=== PATIENT | male | born 1955 | race Caucasian/White ===

== ENCOUNTER 2017-12-16 07:39 | Day surgery (SDC) | payer OTHER, SELFPAY ==
[2017-12-16] VITALS (7 sets, daily range): BP systolic 108–127; BP diastolic 65–93; PULSE 40–47; RESP 16–18; TEMP 36.1–36.2; O2SAT 92–99; BMI 37.3
--- NOTE | 2017-12-16 | COLBX_PTH ---
PATIENT: DAVID RAMIREZ LOC: EN U#:[id number] AGE/SX: 62/M ROOM: RE12/16/[address]: Dr. Hamilton Doran MD : [id number] BED: DIS: 12/16/2017 SPEC #: [id number] RECD: 12/16/17 14:04 STATUS: STEFANIA SUZANNE #: [id number] KAREN: 12/16/17 00:[address]: Hamilton Doran DEPT: SURGICAL PATHOLOGY RECD BY: Artie Doherty ENTERED: 12/16/17 14:05 SP TYPE: COLON BX OTHR DR: Dr. Anton Pond III, MD Tissues: Ascending colon Procedures: Surgery Specimen Level IV HEADER OPERATION: Colonoscopy PRE-OP DIAGNOSIS: Screening TISSUE SUBMITTED: Ascending colon polyp MICROSCOPIC DIAGNOSIS Ascending colon polyp, biopsy: Fragments of tubular adenoma. SJ:ally 12/17/17 MICROSCOPIC DESCRIPTION Slides are reviewed. GROSS DESCRIPTION Received in fixative is one container labeled with the patient's name and designated ascending colon polyp. The specimen consists of two pieces of calixto-pink polyp measuring 0.8 x 0.6 x 0.3 cm and 0.7 x 0.2 x 0.2 cm. The specimen is totally submitted in one cassette. / SJ:ally 12/16/17 TC:1 CPT: 65128
[2017-12-16 08:36] LABS: Bedside Glucose 116 mg/dL (70-110)
--- NOTE | 2017-12-16 08:53 | PCM.OPRPT ---
Problem List (1) Encounter for screening for malignant neoplasm of colon Status: Acute Report of Operation Date of Procedure: 12/16/17 Pre-Operative Diagnosis: Z12.11 screening colonoscopy Post-Operative Diagnosis: Same Surgery/Procedure Performed:: 25219 colonoscopy with snare polypectomy Type of Anesthesia:: MAC Anesthesiologist: Darion Terry Description of Procedure: Patient was brought into the endoscopy suite and placed in the left lateral decubitus position. Patient was given graded anesthesia. Scope was inserted into the rectum. The scope was directed through the sigmoid colon, descending colon, transverse colon, ascending colon, to the cecum. Operative findings: 1. Cecum: Normal appearance no mass lesions normal ileocecal valve. 2. Ascending colon: Normal appearance no mass lesions. Small polyp was identified and removed with snare cautery technique and brought back to the channel of the scope 3. Transverse colon: Normal appearance no mass lesions. 4. descending colon: Normal appearance no mass lesions. 5. Sigmoid colon: Normal appearance no mass lesions. Moderate amount of diverticular disease was identified. 6. Rectum: Normal appearance no mass lesions retroflexion did show some internal hemorrhoids no masses are identified. Digital rectal exam was performed showing a smooth prostate with no masses within the anus. Patient will need to have another colonoscopy in 3 years. - Admit VTE Documentation VTE Present on Admission: No VTE Mechan Device Prophylaxis: None VTE Pharm Prophylaxis ordered?: No Reason prophylaxis not ordered:: Treatment Not Indicated
--- NOTE | 2017-12-16 08:56 | PCM.HP.STD ---
Problem List (1) Encounter for screening for malignant neoplasm of colon Status: Acute History of Present Illness Date of Admission: 12/16/17 The patient is a 62 year old M who presents for screening colonoscopy. Past Medical History Past Medical History (Chronic Problems): Chronic Problems (Last Reviewed 09/27/17 @ 16:00 by Dez Sr) Essential (primary) hypertension (Chronic) Paroxysmal atrial fibrillation (Chronic) Allergies No Known Allergies Allergy (Verified 12/13/17 16:16) Home Medications: Ambulatory Orders Medication Instructions Recorded Allopurinol 300 mg PO DAILY 08/19/17 Fingolimod HCl [Gilenya] 0.5 mg PO DAILY 08/19/17 Gabapentin [Neurontin] 1 tab PO DAILY 08/19/17 Metoprolol Tartrate [Lopressor 100 mg PO BID #60 tab 08/23/17 (beta leandra)] Rivaroxaban [Xarelto] 20 mg PO DINNER #30 tab 08/23/17 Tamsulosin HCl [Flomax] 0.8 mg PO DAILY@1730 #60 cap 08/23/17 diltiazem CD 180 mg 180 mg PO QDAY cap 09/27/17 capsule,extended release 24 hr Metformin HCl 500 mg PO DAILY 12/13/17 Surgical History: - - Surgery on hand secondary to tendon laceration, arthroscopy of the knee Psychiatric History: No pertinent psych hx Smoking Status: Never smoker - *Family History Maternal History Items: Cancer - Lung cancer Paternal History Items: Cancer - Lung cancer, Heart Disease VTE Information - Inpt Only VTE Present on Admission: No VTE Mechan Device Prophylaxis: None VTE Pharm Prophylaxis ordered?: No Reason prophylaxis not ordered:: Treatment Not Indicated Patient Problems: Active and Suspected Problems (Last Reviewed 09/27/17 @ 16:00 by Dez Sr) Encounter for screening for malignant neoplasm of colon (Acute) - Physical Exam Neck: Supple, No JVD Lungs: Clear to auscultation Cardiovascular: Regular rate, Regular Rhythm, No murmurs Abdomen: Bowel Sounds Present, Soft, Non Tender, Non-Distended Vital Signs Temp Pulse Resp BP Pulse Ox 97.0 F L 47 L 18 123/84 H 99 12/16/17 07:58 12/16/17 07:58 12/16/17 07:58 12/16/17 07:58 12/16/17 07:58 Oxygen Delivery Method Room Air Weight: 298 lb 15.149 oz Body Mass Index (BMI) 37.3 POC Glucose 12/16/17 08:02 POC Glucose 116 H Assessment/Plan Active and Suspected Problems (Last Reviewed 09/27/17 @ 16:00 by Dez Sr) Encounter for screening for malignant neoplasm of colon (Acute) I plan is to perform a colonoscopy on the patient.
== END 2017-12-16 09:39 | disposition home or self-care (01) ==
LOC: EN 07:42 → AC 07:43
PROVIDERS: Family Provider Family Medicine; PCP Family Medicine; Visit Provider Surgery
PROC: 0DJD8ZZ Inspection of Lower Intestinal Tract, Via Natural or Artificial Opening Endoscopic (ICD-10-PCS; CPT 45378; principal; 2017-12-16 08:55)
DX: Z12.11 Encounter for screening for malignant neoplasm of colon (principal); D12.2 Benign neoplasm of ascending colon; K57.30 Diverticulosis of large intestine without perforation or abscess without bleeding; K64.8 Other hemorrhoids; I10 Essential (primary) hypertension; I48.0 Paroxysmal atrial fibrillation; G35 Multiple sclerosis; E11.9 Type 2 diabetes mellitus without complications; Z86.19 Personal history of other infectious and parasitic diseases; Z79.84 Long term (current) use of oral hypoglycemic drugs; Z79.899 Other long term (current) drug therapy
CPT/HCPCS: 45385; 82962; 88305; J7120

== ENCOUNTER → 2018-10-10 13:11 | Outpatient (CLI) | payer OTHER, SELFPAY ==
[2018-10-10 11:10] VITALS: BMI 40.4
== END ==
PROVIDERS: Family Provider Family Medicine; PCP Family Medicine; Referring Provider Internal Medicine Cardiovascular Disease; Visit Provider Internal Medicine Cardiovascular Disease
DX: I48.0 Paroxysmal atrial fibrillation (principal)
CPT/HCPCS: 93225; 93226

== ENCOUNTER → 2019-02-02 | Outpatient (CLI) | payer OTHER, SELFPAY ==
[2018-10-10 11:10] VITALS: BMI 40.4
--- NOTE | 2019-02-02 08:02 | ECHOCS_ITS ---
Reason For Study: A. fib/flutter Procedure This was a 2D Doppler, Color Flow transthoracic echocardiogram. Exam performed in department. Left Ventricle Normal LV size. Moderate concentric left ventricular hypertrophy. Left ventricular systolic function is normal. The estimated ejection fraction is 60 %. Stage 1 diastolic dysfunction. No regional wall motion abnormalities noted. Right Ventricle Normal RV size. Normal systolic function. Atria The left atrium is moderately enlarged. Normal right atrium. Mitral Valve There is mild to moderate mitral annular calcification. Mild (1+) eccentric mitral valve insufficiency. Tricuspid Valve Normal tricuspid valve. Mild (1+) tricuspid valve insufficiency. Pulmonary artery systolic pressure is 40 mmHg. Aortic Valve Trisinus/trileaflet aortic valve. Mild focal aortic valve calcification. Mild (1+) aortic valve insufficiency. Pulmonic Valve Normal pulmonic valve. Great Vessels Normal aortic root. The pulmonary artery is normal size. Normal inferior vena cava. Pericardium/Pleural No pericardial effusion. Medication 22 gauge I.V. with prn adaptor inserted into right arm. Diluted definity 6ml given slow IV push to enhance endocardial definition. MMode/2D Measurements & Calculations LVIDd: 5.1 cm IVSd: 1.6 cm Ao root diam: 3.9 cm LVIDs: 3.1 cm LVPWd: 1.5 cm RVDd: 4.0 cm FS: 40.3 % LAV(MOD-bp): 132.6 ml LA A4 area: 33.7 cm2 LA dimension(2D): 4.4 cm LAV(MOD-bp) Indexed: 50.0 ml/m2 LAV(MOD-sp2): 127.9 ml LAV(MOD-sp4): 136.9 ml RA A4 area: 20.2 cm2 Doppler Measurements & Calculations MV E max matteo: 106.0 cm/sec Lat Peak E' Matteo: 8.9 cm/sec Med Peak E' Matteo: 6.1 cm/sec MV A max matteo: 45.9 cm/sec E/E' lat: 11.9 E/E' med: 17.3 MV E/A: 2.3 Ao V2 max: 196.0 cm/sec LV V1 max: 107.1 cm/sec PA V2 max: 114.4 cm/sec Ao max P.4 mmHg LV V1 max P.6 mmHg Ao V2 mean: 130.2 cm/sec LV V1 mean P.3 mmHg Ao mean P.6 mmHg LV V1 mean: 70.9 cm/sec Ao V2 VTI: 41.8 cm LV V1 VTI: 24.6 cm TR max matteo: 300.7 cm/sec TR max P.2 mmHg Interpretation Summary Normal LV size. Moderate concentric left ventricular hypertrophy. Left ventricular systolic function is normal. The estimated ejection fraction is 60 %. Stage 1 diastolic dysfunction. Mild (1+) eccentric mitral valve insufficiency. Mild (1+) tricuspid valve insufficiency. Mild focal aortic valve calcification. Mild (1+) aortic valve insufficiency. Ordering Physician: Alfonzo Monte Referring Physician: RASHEED Pond M.D. Performed By: Nkechi Agustin RDCS
== END | disposition home or self-care (01) ==
PROVIDERS: Family Provider Family Medicine; PCP Family Medicine; Referring Provider Internal Medicine Cardiovascular Disease; Visit Provider Internal Medicine Cardiovascular Disease
DX: I48.0 Paroxysmal atrial fibrillation (principal)
CPT/HCPCS: 93306; Q9957; A4216; C8929

== ENCOUNTER 2021-05-04 19:17 | Inpatient (IN) | payer OTHER, SELFPAY ==
[2020-12-02 13:37] VITALS: BMI 39.0
[2021-05-04] VITALS (7 sets, daily range): BP systolic 100–119; BP diastolic 60–77; PULSE 98–123; RESP 16–22; TEMP 36.6–37.8; O2SAT 95–99; BMI 38.3; BMI 38.7
--- NOTE | 2021-05-04 20:05 | EKG12_ITS ---
Test Reason : DYSRHYTHMIA Blood Pressure : / mmHG Vent. Rate : 125 BPM Atrial Rate : 101 BPM P-R Int : 000 ms QRS Dur : 156 ms QT Int : 322 ms P-R-T Axes : 000 051 -47 degrees QTc Int : 464 ms Atrial fibrillation with rapid ventricular response Right bundle branch block T wave abnormality, consider lateral ischemia Abnormal ECG Confirmed by DREW HILL, JORDEN ([id number]), manager editorial NICK VAUGHN ([id number]) on 05/08/2021 9:45:02 AM Referred By: CHAR Confirmed By:YOUSUF RUSSELL MD
--- NOTE | 2021-05-04 20:06 | EX.ED.DYSGE1 ---
HPI History of Present Illness Chief Complaint: Palpitations Detail of Chief Complaint: Decreased urine output Informant: patient Narrative Narrative: Patient presents to the emergency department with complaint of decreased urine output that started 2 days ago. Patient was seen by Dr. Blake today and referred to the ER as he was in [facility]. Patient has history of sepsis. Patient has history of MS and hypertension. He is not currently anticoagulated. He denies fevers or chills or sweats at home. Patient has had his Covid vaccine. He denies any significant cough. He does not feel his heart racing or any palpitations currently. [facility] Medical History (Updated 05/04/21 @ 21:[address] Beau Lynch, DO) Bilateral enlargement of atria BPH (benign prostatic hyperplasia) Essential (primary) hypertension Multiple sclerosis Paroxysmal atrial fibrillation Right bundle branch block Sepsis Type 2 diabetes mellitus Home Medications fingolimod 0.5 mg PO DAILY 08/19/17 [History Last Taken Unknown] tamsulosin 0.8 mg PO DAILY@1730 #60 cap 08/23/17 [Rx Last Taken Unknown] losartan 100 mg tablet 100 mg PO DAILY #90 tab 06/19/19 [Rx Last Taken Unknown] metoprolol tartrate 100 mg tablet 100 mg PO DAILY #90 tab 06/19/19 [Rx Last Taken Unknown] allopurinol 300 mg tablet 300 mg PO DAILY PRN 10/15/19 [History Last Taken Unknown] aspirin 81 mg tablet,delayed release 81 mg PO DAILY #1 tab 11/04/20 [Rx Last Taken Unknown] Allergy/AdvReac Type Severity Reaction Status Date / Time No Known Allergies Allergy Verified 05/04/21 19:19 Family History Mother Cancer Father Heart disease Cancer Surgical History H/O arthroscopy of knee H/O hand surgery Social History (Updated 12/02/20 @ 15:41 by Naveen BONDS, PA) Smoking Status: Never smoker alcohol intake: former substance use type: does not use caffeine: Yes Type: coffee eating out: 1-3 times/week what type of physical activity do you participate in: none seatbelt use: always do you feel safe at home: Yes ROS ROS ED Constitutional Constitutional ED: Reports systems reviewed and no addt'l complaints, except as documented; Denies body ache(s), change in weight or chills Eyes Eyes: Denies acute decrease in peripheral vision, change in vision, double vision or loss of vision ENT ENT ED: Reports none; Denies ear pain, lip swelling, loss taste/smell, neck pain, otalgia or sore throat Cardiovascular Cardiovascular: Reports none; Denies abdominal pain, chest pain with activity, leg edema, lightheadedness, palpitations, rapid heart rate or syncope Respiratory/Chest Respiratory/Chest: Reports none; Denies change in mental status, dry cough, dyspnea, hemoptysis, shortness of breath at rest or shortness of breath with exertion Gastrointestinal Gastrointestinal: Reports none; Denies abdominal pain, change in stool character, diarrhea, hematemesis, hematochezia, melena, rectal bleeding or vomiting Genitourinary Genitourinary ED: Reports none and other Details: Decreased urine output ; Denies abdominal discomfort, anuria, dysuria, genital pain or polyuria Musculoskeletal Musculoskeletal: Reports none; Denies arthralgias, back pain, difficulty walking, extremity pain, muscle weakness or myalgias Integumentary Reports none; Denies abscess or rash Neurologic Neurologic: Reports none; Denies abnormal gait, confusion, focal weakness, frequent falls, headache(s), loss of vision, numbness, paresthesias, radicular pain, vertigo or weakness Psychiatric Psychiatric: Reports systems reviewed and no addt'l complaints, except as documented and none; Denies behavioral changes, confusion, difficulty concentrating, hallucinations, suicidal ideation, tactile hallucinations or visual hallucinations Endocrine Endocrinology: Denies none, cold intolerance, excessive sweating, fatigue or heat intolerance Hematologic/Lymphatic Hematologic/Lymphatic: Reports none; Denies anemia, easy bleeding or easy bruising Allergic/Immunologic Allergic/Immunologic ED: Denies as per HPI, none, lip swelling, mouth swelling, throat swelling, tongue swelling or hives EXAM Physical Exam Const Vital Signs: 05/04/21 19:19 05/04/21 20:01 05/04/21 20:24 Temperature 97.8 F 100.0 F H Temperature Source Temporal Oral Pulse Rate 100 120 H Respiratory Rate 16 20 H Respiratory Pattern Normal Blood Pressure 119/73 112/62 Blood Pressure Mean 88 78 Pulse Ox 99 99 Oxygen Delivery Method Room Air Room Air Positive well nourished and well developed General Appearance ED: well developed and NAD HEENT Reports TM's clear and moist mucous membranes normocephalic and atraumatic; Negative for trauma or tenderness Tympanic Membrane ED: Yes TM's clear Eyes PERRL and EOMs intact bilaterally General Eye ED: Negative for pale conjunctiva or scleral icterus Neck no lymphadenopathy, supple and no JVD General: Negative for tenderness Chest Wall inspection of chest normal and palpation of chest normal Chest: Negative for tenderness Resp normal respiratory effort and clear to auscultation bilaterally Effort and Inspection: Negative for respiratory distress or pain with movement Auscultation: Negative for rhonchi, wheezes or diminished lung sounds Cardio S1 normal heart sound, S2 normal heart sound and no murmurs Rate: tachycardic Rhythm: abnormal rhythm Peripheral Pulses: pulses 2+ throughout GI normal to inspection, nondistended, normoactive bowel sounds, soft to palpation, non-tender, non-distended and no masses Back/Spine no CVA tenderness and no thoracic nor lumbar tenderness Extremity normal to inspection General Extremety ED: Negative for edema General Extremity: Negative for edema Neuro oriented x3, CN's II-XII intact bilaterally, no sensory deficits noted and gait normal Sensorium / Orientation: awake, alert, oriented to person, oriented to place and oriented to time Motor Exam: strength 5/5 throughout and strength abnormal Psych mental status grossly normal Skin no rashes or lesions noted and no wounds MDM MDM MDM Narrative Medical decision making narrative: Patient was given IV fluids and started on Rocephin 1 g IV. I did not treat the patient's heart rate given his blood pressure was marginal initially I felt he initially needed to have fluids for suspected sepsis. Case discussed with hospitalist will evaluate patient for admission. Lab Data Attestation: I reviewed the patient's lab results. Labs: Laboratory Results - last 24 hr 05/04/21 05/04/21 05/04/21 20:00 20:00 20:00 WBC 9.9 RBC 3.87 L Hgb 12.5 L Hct 37.7 L MCV 97.4 H MCH 32.3 H MCHC 33.2 RDW Std Deviation 47.3 H RDW Coeff of Carmelo 13.2 Plt Count 157 MPV 12.4 H Immature Gran % (Auto) 0.400 Neut % (Auto) 88.5 H Lymph % (Auto) 4.8 L [place] % (Auto) 6.1 Eos % (Auto) 0.1 Baso % (Auto) 0.1 Absolute Neuts (auto) 8.8 H Absolute Lymphs (auto) 0.48 L Nucleated RBC % 0 Differential Comment SEE COMMENT Platelet Estimate ADEQUATE RBC Morphology N CHROM Anisocytosis RARE Macrocytosis RARE Sodium 138 Potassium 3.6 Chloride 102 Carbon Dioxide 26.0 Anion Gap 10 BUN 31 H Creatinine 1.25 Estim Creat Clear Calc 70.33 Est GFR (MDRD) Af Amer 75 Est GFR (MDRD) Non-Af 62 BUN/Creatinine Ratio 24.8 H Glucose 124 H Lactic Acid 0.8 Calcium 8.6 Total Bilirubin 0.80 AST 20 ALT 24 Alkaline Phosphatase 72 Troponin I High Sens 13.8 Total Protein 7.3 Albumin 3.2 Globulin 4.1 Albumin/Globulin Ratio 0.8 L Urine Color Urine Clarity Urine pH Ur Specific [place] Urine Protein Urine Glucose (UA) Urine Ketones Urine Occult Blood Urine Nitrite Urine Bilirubin Urine Urobilinogen Ur Leukocyte Esterase Urine RBC Urine WBC Ur Squamous Epith Cells Amorphous Sediment Urine Bacteria Urine Mucus 05/04/21 20:40 WBC RBC Hgb Hct MCV MCH MCHC RDW Std Deviation RDW Coeff of [place] Plt Count MPV Immature Gran % (Auto) Neut % (Auto) Lymph % (Auto) [place] % (Auto) Eos % (Auto) Baso % (Auto) Absolute Neuts (auto) Absolute Lymphs (auto) Nucleated RBC % Differential Comment Platelet Estimate RBC Morphology Anisocytosis Macrocytosis Sodium Potassium Chloride Carbon Dioxide Anion Gap BUN Creatinine Estim Creat Clear Calc Est GFR (MDRD) Af Amer Est GFR (MDRD) Non-Af BUN/Creatinine Ratio Glucose Lactic Acid Calcium Total Bilirubin AST ALT Alkaline Phosphatase Troponin I High Sens Total Protein Albumin Globulin Albumin/Globulin Ratio Urine Color Yellow Urine Clarity Cloudy Urine pH 8.0 Ur Specific [place] 1.010 Urine Protein 30 H Urine Glucose (UA) Normal Urine Ketones Negative Urine Occult Blood 150 H Urine Nitrite Positive H Urine Bilirubin Negative Urine Urobilinogen Normal Ur Leukocyte Esterase 500 H Urine RBC 10-25 SEEN Urine WBC 25-50 SEEN Ur Squamous Epith Cells 0-5 SEEN Amorphous Sediment 1+ PHOS Urine Bacteria 2+ Urine Mucus 0 SEEN Radiography Chest X-Ray - ED: 1 View Diagnostic Testing: Radiology Impression Chest X-Ray 05/04/21 20:44 IMPRESSION: No radiographic evidence of acute cardiopulmonary disease. at 2111 Reported and signed by: Juan Carlos Culver MD Electronically Signed: Juan Carlos Culver MD at 21:10 EDT Tel , Service support , 1 view chest x-ray obtained interpreted by myself as no acute disease process. EKG Initial EKG: Attestation: I personally reviewed and interpreted this EKG as follows: Comments: Atrial fibrillation with a ventricular rate of 125 bpm with right bundle branch block and nonspecific ST changes. Discharge Plan Dx/Rx/DC Orders Clinical Impression: Atrial fibrillation with rapid ventricular response, Acute UTI, Sepsis Disposition Disposition: Acute Care [facility]
[2021-05-04 20:24] LABS: Absolute Lymphocyte Count 0.48 X10^3/uL (0.83-4.51); Absolute Neutrophil Count 8.8 X10^3/uL (2.0-7.7); Basophil# 0.01 X10^3/uL; Basophil% 0.1 % (0-1); Eosinophil# 0.01 X10^3/uL; Eosinophils% 0.1 % (0-5); Hematocrit 37.7 % (40-54); Hemoglobin 12.5 g/dL (13.0-16.5); Lymphocyte # 0.48 X10^3/ul (0.83-4.51); Lymphocyte % 4.8 % (19-41); Mean Corp Hgb Conc 33.2 g/dL (32-36); Mean Corpuscular Hgb 32.3 pg (27.0-32.0); Mean Corpuscular Volume 97.4 fL (80-94); Mean Platelet Vol. 12.4 fl (6.2-12.0); Monocyte# 0.61 X10^3/uL; Monocyte% 6.1 % (0-10); NRBC Flagged by Analyzer 0 % (0-5); Neutrophil # 8.79 X10^3/uL (2.7-7.7); Neutrophil % 88.5 % (47-70); POSITIVE DIFFERENTIAL YES; Platelet Count 157 K/mm3 (150-450); RBC Distribution Width CV 13.2 % (11.6-14.6); RBC Distribution Width SD 47.3 fl (35.1-43.9); Red Blood Count 3.87 M/mm3 (4.6-6.2); White Blood Count 9.9 K/mm3 (4.4-11.0)
[2021-05-04] MEDS: 0.9% Normal Saline 1,000 ML 1000 ML IV (20:31)
[2021-05-04 20:32] LABS: Differential Indicated SCAN CRITERIA MET
[2021-05-04 20:37] LABS: Lactic Acid 0.8 mmol/L (0.4-1.9)
[2021-05-04 20:39] LABS: ALB/GLOB Ratio 0.8 RATIO (0.9-2.4); AST(SGOT) 20 U/L (15-37); Alanine Aminotransfer ALT/SGPT 24 U/L (16-61); Albumin, Serum 3.2 g/dL (3.2-5.0); Alkaline Phosphatase 72 U/L (45-117); Anion Gap 10 (5-15); BUN 31 mg/dL (7-18); BUN/Creat Ratio 24.8 RATIO (10-20); Calcium,Total 8.6 mg/dL (8.5-10.1); Chloride 102 mmol/L (98-107); Creatinine, Serum 1.25 mg/dL (0.70-1.30); EST Glomerular Filtration Rate 62 mL/min (>60); Est Glom Filt Rate - Afr Amer 75 mL/min (>60); Estimated Creatinine Clearance 70.33 ml/min; Globulin 4.1 g/dL (2.2-4.2); Glucose 124 mg/dL (74-106); Potassium 3.6 mmol/L (3.5-5.1); Protein, Total 7.3 g/dL (6.4-8.2); Sodium Level 138 mmol/L (136-145); Troponin-I HS 13.8 pg/mL (3.0-78.5)
--- NOTE | 2021-05-04 20:44 | RAD_ITS ---
HISTORY: fever EXAMINATION/TECHNIQUE: XR Chest 1 View: Portable upright AP chest x-ray COMPARISON: 08/19/17 FINDINGS: LINES/DEVICES: None. LUNGS: No consolidation, edema or effusion. No pneumothorax. MEDIASTINUM AND CARDIOVASCULAR STRUCTURES: Cardiac silhouette not enlarged. Central airways and mediastinal contour are unremarkable. BONES AND SOFT TISSUES: No acute bony abnormalities. RAD/Chest 1 View (Portable) IMPRESSION: No radiographic evidence of acute cardiopulmonary disease. at 2111 Reported and signed by: Juan Carlos Culver MD Electronically Signed: Juan Carlos Culver MD at 21:10 EDT Tel , Service support ,
[2021-05-04 20:46] LABS: Mucous, Urine 0 SEEN /hpf (<or=2+)
[2021-05-04 20:56] LABS: Color, Urine Yellow (Yellow); Glucose, Dipstick Normal (Normal); Ketone-Dipstick Negative (Negative); Leukocyte Esterase-Dipstick 500 /ul (Negative); Nitrite-Dipstick Positive (Negative); Occult Blood-Urine 150 /ul (Negative); Protein-Dipstick 30 mg/dl (Negative); Urine Bilirubin Dipstick Negative (Negative); Urine Clarity Cloudy (Clear); Urine Urobilinogen Normal (Normal)
[2021-05-04 21:21] LABS: Anisocytosis RARE; Macrocytosis RARE; Platelet Estimate ADEQUATE (ADEQ); Red Cell Morphology N CHROM NORMAL (NORM C&C)
[2021-05-04 21:24] LABS: Amorphous Sediment 1+ PHOS; Bacteria 2+ /hpf (None Seen); Red Blood Cells-Urine 10-25 SEEN /hpf (0-5); Squamous Epithelial Cells - UA 0-5 SEEN /hpf (0-5); White Blood Cells 25-50 SEEN /hpf (0-5)
--- NOTE | 2021-05-04 21:36 | PCM.HP.STD ---
HPI - General General Date of Admission: 05/04/21 HPI Narrative DAVID RAMIREZ, is a 65 M with a PMH as outlined who presents via the ED on 05/04/2021 from his PCP's office with a complaint of decreased urine output. In his PCP's office, he was found to be in afib with RVR.He has a history of paroxysmal afib. He is not anticoagulated. He did admit to dysuria earlier in the week, so he had started drinking more fluids. He denied any fever, chills, chest pain, palpitations, abdominal pain, dizziness, nausea or vomiting. Review of systems was otherwise negative. Vitals in the ED were temp of 11F, RR of 20, DE of 120 and BP of 112/62. CBC showed wbc of 9.9 with Hb of 12.5 and platelets of 157. Chemistry showed sodium of 138, K of 3.6 and Cr of 1.25. Urinalysis showed 2+ bacteria and positive nitrites. He is being admitted to be managed for Afib with RVR and sepsis due to UTI. Lactic acid was WNL. [facility] Medical History (Updated 05/05/21 @ 16:[address] Carissa Barnhart, DO) Bilateral enlargement of atria BPH (benign prostatic hyperplasia) Essential (primary) hypertension Multiple sclerosis Paroxysmal atrial fibrillation Right bundle branch block Sepsis Type 2 diabetes mellitus Home Medications allopurinol 300 mg tablet 300 mg PO DAILY PRN 10/15/19 [History Last Taken Unknown] aspirin 81 mg PO DAILY 05/04/21 [History Last Taken Unknown] fingolimod [Gilenya] 0.5 mg PO DAILY 05/04/21 [History Last Taken Unknown] losartan 100 mg PO DAILY 05/04/21 [History Last Taken Unknown] metoprolol tartrate 100 mg PO DAILY 05/04/21 [History Last Taken Unknown] tamsulosin 0.4 mg PO DAILY@1730 05/04/21 [History Last Taken Unknown] apixaban [Eliquis] 5 mg PO BID #60 tab 05/05/21 [Rx Last Taken Unknown] Allergy/AdvReac Type Severity Reaction Status Date / Time No Known Allergies Allergy Verified 05/04/21 19:19 Family History Mother Cancer Father Heart disease Cancer Surgical History H/O arthroscopy of knee H/O hand surgery Social History (Updated 05/05/21 @ 00:07 by Eduarda Vora) household members: spouse housing: house number of children: 2 current occupational status: employed 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 history of recent travel: No Smoking Status: Never smoker alcohol intake: former substance use type: does not use caffeine: No eating out: 1-3 times/week what type of physical activity do you participate in: none 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: [employer] seatbelt use: always do you feel safe at home: Yes ROS Review of Systems ROS Unobtainable: Denies due to encephalopathy Constitutional Constitutional: Reports chills, fever(s), malaise and weakness; Denies anorexia, change in weight or fatigue Eyes Eyes: Denies blurry vision ENT HEENT: Denies dysphagia, headache(s) or nasal congestion Cardiovascular Cardiovascular: Reports palpitations; Denies chest pain, dyspnea on exertion, edema, lightheadedness, orthopnea or syncope Respiratory/Chest Respiratory/Chest: Denies cough, dyspnea, productive cough, shortness of breath at rest, shortness of breath with exertion or wheezing Gastrointestinal Gastrointestinal: Denies abdominal pain, diarrhea, nausea or vomiting Genitourinary Genitourinary: Reports burning urination, dysuria and urinary frequency; Denies urinary hesitancy or urinary incontinence Musculoskeletal Musculoskeletal: Denies arthralgias, joint stiffness or joint swelling Neurologic Neurologic: Denies abnormal gait, confusion, dizziness, focal weakness or seizures Psychiatric Psychiatric: Denies anxiety or depression Hematologic/Lymphatic Hematologic/Lymphatic: Denies anemia Vital Signs Vital Signs Vital Signs: 05/04/21 19:19 05/04/21 20:01 05/04/21 20:24 Temperature 97.8 F 100.0 F H Temperature Source Temporal Oral Pulse Rate 100 120 H Respiratory Rate 16 20 H Respiratory Pattern Normal Blood Pressure 119/73 112/62 Blood Pressure Mean 88 78 Pulse Ox 99 99 Oxygen Delivery Method Room Air Room Air Weight Weight: 298 lb 11.622 oz Body Mass Index (BMI) 38.3 Physical Exam Const alert, oriented x3 and no apparent distress General Appearance: cooperative HEENT normocephalic, head/scalp atraumatic, hearing grossly normal bilaterally and moist oral mucous membranes Eyes PERRL, EOMs intact bilaterally and conjunctivae normal Neck no lymphadenopathy Resp normal respiratory effort, no retractions, no use of accessory muscles and clear to auscultation bilaterally Cardio Cardio Narrative: irregularly irregular rate; afib, rate controlled. GI normal to inspection, nondistended, normoactive bowel sounds, soft to palpation, non-tender and non-distended Extremity normal to inspection, full ROM and no clubbing, cyanosis or edema Peripheral Pulses: Yes pulses 2+ throughout Skin no rashes or lesions noted Neuro oriented x3 Sensorium / Orientation: awake and alert Psych affect normal Results Lab / Micro Data Result Diagrams: 05/05/21 06:18 05/05/21 06:18 Labs: Laboratory Results - last 24 hr 05/04/21 20:00: WBC 9.9, RBC 3.87 L, Hgb 12.5 L, Hct 37.7 L, MCV 97.4 H, MCH 32.3 H, MCHC 33.2, RDW Std Deviation 47.3 H, RDW Coeff of Carmelo 13.2, Plt Count 157, MPV 12.4 H, Immature Gran % (Auto) 0.400, Neut % (Auto) 88.5 H, Lymph % (Auto) 4.8 L, Foard % (Auto) 6.1, Eos % (Auto) 0.1, Baso % (Auto) 0.1, Absolute Neuts (auto) 8.8 H, Absolute Lymphs (auto) 0.48 L, Nucleated RBC % 0, Differential Comment SEE COMMENT, Platelet Estimate ADEQUATE, RBC Morphology N CHROM, Anisocytosis RARE, Macrocytosis RARE 05/04/21 20:00: Sodium 138, Potassium 3.6, Chloride 102, Carbon Dioxide 26.0, Anion Gap 10, BUN 31 H, Creatinine 1.25, Estim Creat Clear Calc 70.33, Est GFR (MDRD) Af Amer 75, Est GFR (MDRD) Non-Af 62, BUN/Creatinine Ratio 24.8 H, Glucose 124 H, Calcium 8.6, Total Bilirubin 0.80, AST 20, ALT 24, Alkaline Phosphatase 72, Troponin I High Sens 13.8, Total Protein 7.3, Albumin 3.2, Globulin 4.1, Albumin/Globulin Ratio 0.8 L 05/04/21 20:00: Lactic Acid 0.8 05/04/21 20:40: Urine Color Yellow, Urine Clarity Cloudy, Urine pH 8.0, Ur Specific [place] 1.010, Urine Protein 30 H, Urine Glucose (UA) Normal, Urine Ketones Negative, Urine Occult Blood 150 H, Urine Nitrite Positive H, Urine Bilirubin Negative, Urine Urobilinogen Normal, Ur Leukocyte Esterase 500 H, Urine RBC 10-25 SEEN, Urine WBC 25-50 SEEN, Ur Squamous Epith Cells 0-5 SEEN, Amorphous Sediment 1+ PHOS, Urine Bacteria 2+, Urine Mucus 0 SEEN Radiology Impression Chest X-Ray 05/04/21 20:44 IMPRESSION: No radiographic evidence of acute cardiopulmonary disease. at 2111 Reported and signed by: Juan Carlos Culver MD Electronically Signed: Juan Carlos Culver MD at 21:10 EDT Tel , Service support , Assessment & Plan Assessment/Plan (1) Atrial fibrillation with rapid ventricular response: (2) Acute UTI: (3) Sepsis: PLAN: #Sepsis due to UTI SIRS criteria is 2/4 (tachypne and tachycardia) with source of infection being UTI admit to PCU hydrate with IVF start on IV ceftriaxone blood and urine cultures obtained #Afib wtih RVR HR is ~ 120 at time of review on metoprolol. Will resume. If HR trends upwards, will start on cardizem drip as appropriate #History of MS on fingolimod. #Hypertension: on losartana nd metoprolol #BPH: on flomax History of gout: on allopurinol DVT prophylaxis; lovenox Code status: full code Patient counseled extensively about different types of CODE STATUS including full code, DNR CCA and DNR CCA. Patient elects to be full code. Total maye-im-sbgn time 17 minutes. Charges/Coding Visit Charges Inpatient E&M: 28594 Init Hosp L3 Procedures Hospitalists Procedures: 71122 Advncd Care Plan 30 Min
[2021-05-04] MEDS: 0.9% Normal Saline 1,000 ML 999 ML IV ×2 (22:04)
[2021-05-04] MEDS: Ceftriaxone 1 GM/50 ML BAG IV (22:05)
[2021-05-04] MEDS: 0.9% Normal Saline 1,000 ML 150 ML IV (23:50)
[2021-05-05] VITALS (13 sets, daily range): BP systolic 119–142; BP diastolic 76–91; PULSE 90–148; RESP 16–18; TEMP 36.9–37.4; O2SAT 95–100
[2021-05-05 01:40] LABS: Troponin-I HS 10.5 pg/mL (3.0-78.5)
[2021-05-05 03:27] LABS: Troponin-I HS 13.9 pg/mL (3.0-78.5)
[2021-05-05] MEDS: Metoprolol Tartrate 25 MG Tablet 12.5 MG PO (06:18)
[2021-05-05] MEDS: 0.9% Normal Saline 1,000 ML 150 ML IV (06:20)
[2021-05-05 06:51] LABS: Absolute Lymphocyte Count 0.18 X10^3/uL (0.83-4.51); Absolute Neutrophil Count 5.4 X10^3/uL (2.0-7.7); Basophil# 0.01 X10^3/uL; Basophil% 0.2 % (0-1); Eosinophil# 0.06 X10^3/uL; Hemoglobin 11.8 g/dL (13.0-16.5); Lymphocyte # 0.18 X10^3/ul (0.83-4.51); Lymphocyte % 2.9 % (19-41); Mean Corp Hgb Conc 32.8 g/dL (32-36); Mean Corpuscular Hgb 32.7 pg (27.0-32.0); Mean Corpuscular Volume 99.7 fL (80-94); Mean Platelet Vol. 12.3 fl (6.2-12.0); Monocyte# 0.57 X10^3/uL; Monocyte% 9.2 % (0-10); NRBC Flagged by Analyzer 0 % (0-5); Neutrophil # 5.35 X10^3/uL (2.7-7.7); Neutrophil % 86.2 % (47-70); POSITIVE DIFFERENTIAL YES; Platelet Count 136 K/mm3 (150-450); RBC Distribution Width CV 13.2 % (11.6-14.6); RBC Distribution Width SD 48.8 fl (35.1-43.9); Red Blood Count 3.61 M/mm3 (4.6-6.2); White Blood Count 6.2 K/mm3 (4.4-11.0)
[2021-05-05 06:55] LABS: Differential Indicated SCAN CRITERIA MET
--- NOTE | 2021-05-05 07:00 | ECHOCS_ITS ---
Reason For Study: AFIB/FLUTTER Procedure This was a 2D Doppler, Color Flow transthoracic echocardiogram. The study was technically difficult. Due to body habitus. Contrast injection was performed. Exam performed portable in patient room. Left Ventricle The estimated ejection fraction is 55 %. No evidence for diastolic dysfunction. No regional wall motion abnormalities noted. Right Ventricle Normal RV size. Normal systolic function. Atria Normal left atrium. Normal right atrium. No doppler evidence for ASD. Mitral Valve There is moderate mitral annular calcification. There is no mitral valve stenosis. Trivial mitral valve insufficiency. Tricuspid Valve There is no tricuspid stenosis. Mild tricuspid valve insufficiency. Pulmonary artery systolic pressure is 40-45 mmHg. Aortic Valve Moderate diffuse aortic valve thickening. There is no aortic stenosis. No aortic valve insufficiency. Pulmonic Valve There is no pulmonic valvular stenosis. No pulmonic valve insufficiency. Great Vessels Normal aortic root. Pericardium/Pleural No pericardial effusion. Medication Definity4.0ml given slow IV push to enhance endocardial definition. MMode/2D Measurements & Calculations LVIDd: 5.4 cm IVSd: 1.2 cm Ao root diam: 3.9 cm LVIDs: 3.4 cm LVPWd: 1.3 cm RVDd: 3.8 cm FS: 37.1 % LAV(MOD-sp4): 134.1 ml LVAd ap4: 49.3 cm2 LVAd ap2: 37.6 cm2 LVLd ap4: 10.0 cm LVLd ap2: 9.6 cm EDV(MOD-sp4): 194.9 ml EDV(MOD-sp2): 121.0 ml EDV(sp4-el): 206.5 ml EDV(sp2-el): 124.8 ml LVAs ap4: 28.1 cm2 LVAs ap2: 22.5 cm2 LVLs ap4: 8.9 cm LVLs ap2: 8.6 cm ESV(MOD-sp4): 74.5 ml ESV(MOD-sp2): 48.6 ml ESV(sp4-el): 75.7 ml ESV(sp2-el): 50.0 ml EF(MOD-sp4): 61.8 % EF(MOD-sp2): 59.9 % EF(sp4-el): 63.4 % SV(MOD-sp4): 120.4 ml SV(MOD-sp2): 72.4 ml SV(sp4-el): 130.8 ml LA dimension(2D): 4.9 cm RA A4 area: 32.4 cm2 Doppler Measurements & Calculations MV E max renato: 136.3 cm/sec Ao V2 max: 189.4 cm/sec LV V1 max: 98.6 cm/sec Ao max P.3 mmHg LV V1 max P.9 mmHg Ao V2 mean: 149.8 cm/sec LV V1 mean P.4 mmHg Ao mean P.5 mmHg LV V1 mean: 73.4 cm/sec Ao V2 VTI: 34.0 cm LV V1 VTI: 16.6 cm PA V2 max: 93.1 cm/sec TR max renato: 288.8 cm/sec TR max P.4 mmHg ECHO/Echo Complete W/ Contrast Interpretation Summary The estimated ejection fraction is 55 %. No evidence for diastolic dysfunction. Trivial mitral valve insufficiency. Mild tricuspid valve insufficiency. Pulmonary artery systolic pressure is 40-45 mmHg. Ordering Physician: Vanessa Rice Referring Physician: Salvador Olivarez Performed By: Edwina Glover, PHIL, RVT
[2021-05-05 07:23] LABS: Anion Gap 6 (5-15); BUN 24 mg/dL (7-18); BUN/Creat Ratio 25.1 RATIO (10-20); Calcium,Total 8.1 mg/dL (8.5-10.1); Chloride 108 mmol/L (98-107); Creatinine, Serum 0.96 mg/dL (0.70-1.30); EST Glomerular Filtration Rate 84 mL/min (>60); Est Glom Filt Rate - Afr Amer 102 mL/min (>60); Estimated Creatinine Clearance 91.57 ml/min; Glucose 125 mg/dL (74-106); Potassium 3.8 mmol/L (3.5-5.1); Sodium Level 140 mmol/L (136-145); Troponin-I HS 12.4 pg/mL (3.0-78.5)
[2021-05-05 07:49] LABS: Thyroid Stim Hormone (TSH) 2.06 uIU/mL (0.358-3.74)
[2021-05-05] MEDS: Glucerna Shake 120 ML LIQUID PO ×2 (09:36→12:39)
[2021-05-05] MEDS: Enoxaparin 150 MG/ML Syringe 130 MG SC (09:58)
--- NOTE | 2021-05-05 11:24 | CASEMGMT ---
JENNIFER ROMERO Assessment: Face to Face with patient for initial transition planning/care coordination assessment. JENNIFER ROMERO introduced self and role at [facility], voices understanding and consents to assessment. Pt is sitting up in chair sleeping and does not awaken to knock on the door or verbal stimuli but at bedside and willing to complete assessment for pt. answers all questions appropriately. Care providers, pharmacy, and demographics verified. Presentation: Pt sent by PCP for afib, pt also states unable to urinate and thinks may be septic Admitting dx: Sepsis d/t UTI PCP: Juanis Specialists: Ivis ramos for MS [facility] Insurance: MMO Prescription Benefit: MMO Living Will/HPOA: states pt has LW/HPOA and is aware that they are not on file. LNOK: Chantal Burr, Living Arrangements: Pt lives with in 2 story home and states no concerns at home. Pt is independent with ADL's. Transportation: Pt drives self and states no transportation concerns. DME/HHC: Pt has no current DME or need for any. Pt with no hx of HHC or SNF. states no concerns with pt going home at time of discharge. 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 Pt does not smoke cigarettes or drink ETOH. voices no further concerns/needs. CM to follow for any further discharge planning/needs. Advised to ask for CM if any further questions/concerns/needs arise, voices understanding. Plan: [place] JENNIFER ROMERO
--- NOTE | 2021-05-05 15:30 | CASEMGMT ---
Pt to be sent home on Eliquis at discharge and med e-scribed to [facility] previously. Call to [facility] and per tech, pt has no co-pay for Eliquis at this time. Sandeep RODRIGUEZ CM
--- NOTE | 2021-05-05 16:23 | PN.HOSP_ITS ---
Subjective Subjective Patient states that overall he is feeling okay. He has had dysuria. He has had frequent UTIs in the last 2 years but has followed up with outpatient urology. He admits that he may be having paroxysmal A. fib issues at home as he has intermittent shortness of breath but has been ignoring it. We discussed his nee d for oral anticoagulation and he is agreeable. This is covered by insurance. Objective Data Objective Data Vital Signs: Vital Signs Temp Pulse Resp BP Pulse Ox 99.3 F H 115 H 18 130/91 H 100 05/05/21 15:20 05/05/21 15:20 05/05/21 15:20 05/05/21 15:20 05/05/21 15:20 Oxygen Delivery Method Room Air Weight: 136.8 kg Body Mass Index (BMI) 38.7 Intake & Output: Intake and Output for Last 24 Hours 05/03/21 05/04/21 05/05/21 23:59 23:59 23:59 Intake Total 3050 / 3050 2515 / 2515 Output Total 0 / 0 900 / 900 Balance 3050 / 3050 1615 / 1615 Lab / Micro Data Result Diagrams: 05/05/21 06:18 05/05/21 06:18 Labs: Laboratory Results - last 24 hr 05/04/21 20:00: WBC 9.9, RBC 3.87 L, Hgb 12.5 L, Hct 37.7 L, MCV 97.4 H, MCH 32.3 H, MCHC 33.2, RDW Std Deviation 47.3 H, RDW Coeff of Carmelo 13.2, Plt Count 157, MPV 12.4 H, Immature Gran % (Auto) 0.400, Neut % (Auto) 88.5 H, Lymph % (Auto) 4.8 L, Villalba % (Auto) 6.1, Eos % (Auto) 0.1, Baso % (Auto) 0.1, Absolute Neuts (auto) 8.8 H, Absolute Lymphs (auto) 0.48 L, Nucleated RBC % 0, Differential Comment SEE COMMENT, Platelet Estimate ADEQUATE, RBC Morphology N CHROM, Anisocytosis RARE, Macrocytosis RARE 05/04/21 20:00: Sodium 138, Potassium 3.6, Chloride 102, Carbon Dioxide 26.0, A nion Gap 10, BUN 31 H, Creatinine 1.25, Estim Creat Clear Calc 70.33, Est GFR (MDRD) Af Amer 75, Est GFR (MDRD) Non-Af 62, BUN/Creatinine Ratio 24.8 H, Glucose 124 H, Calcium 8.6, Total Bilirubin 0.80, AST 20, ALT 24, Alkaline Phos phatase 72, Troponin I High Sens 13.8, Total Protein 7.3, Albumin 3.2, Globulin 4.1, Albumin/Globulin Ratio 0.8 L 05/04/21 20:00: Lactic Acid 0.8 05/04/21 20:40: Urine Color Yellow, Urine Clarity Cloudy, Urine pH 8.0, Ur Specific [place] 1.010, Urine Protein 30 H, Urine Glucose (UA) Normal, Urine Ketones Negative, Urine Occult Blood 150 H, Urine Nitrite Positive H, Urine Bilirubin Negative, Urine Urobilinogen Normal, Ur Leukocyte Esterase 500 H, Urine RBC 10-25 SEEN, Urine WBC 25-50 SEEN, Ur Squamous Epith Cells 0-5 SEEN, Amorphous Sediment 1+ PHOS, Urine Bacteria 2+, Urine Mucus 0 SEEN 05/05/21 01:00: Troponin I High Sens 10.5 05/05/21 03:00: Troponin I High Sens 13.9 05/05/21 03:00: TSH 2.06 05/05/21 06:18: WBC 6.2, RBC 3.61 L, Hgb 11.8 L, Hct 36.0 L, MCV 99.7 H, MCH 32.7 H, MCHC 32.8, RDW Std Deviation 48.8 H, RDW Coeff of Carmelo 13.2, Plt Count 136 L, MPV 12.3 H, Immature Gran % (Auto) 0.500, Neut % (Auto) 86.2 H, Lymph % (Auto) 2.9 L, [place]al[place] % (Auto) 9.2, Eos % (Auto) 1.0, Baso % (Auto) 0.2, Absolute N euts (auto) 5.4, Absolute Lymphs (auto) 0.18 L, Nucleated RBC % 0 05/05/21 06:18: Sodium 140, Potassium 3.8, Chloride 108 H, Carbon Dioxide 26.0, Anion Gap 6, BUN 24 H, Creatinine 0.96, Estim Creat Clear Calc 91.57, Est GFR (MDRD) Af Amer 102, Est GFR (MDRD) Non-Af 84, BUN/Creatinine Ratio 25.1 H, Glucose 125 H, Calcium 8.1 L, Troponin I High Sens 12.4 Radiography Diagnostic Testing: Radiology Impression Chest X-Ray 05/04/21 20:44 IMPRESSION: No radiographic evidence of acute cardiopulmonary disease. at 2111 Reported and signed by: Juan Carlos Culver MD Electronically Signed: Juan Carlos Culver MD at 21:10 EDT Tel , Service support , Physical Exam Const alert, oriented x3 and no apparent distress Constitutional Narrative: Obese white male, lying in bed, appears very comfortable, nontoxic, watching television Exam Limitations: no limitations HEENT head/scalp atraumatic and moist oral mucous membranes HEENT Narrative: Mallampati two, no thrush, good dentition Head and Scalp: normocephalic Eyes PERRL, EOMs intact bilaterally and conjunctivae normal Neck supple Neck Narrative: Trachea midline, no thyroid enlargement or nodules palpated Resp normal respiratory effort, no retractions, no use of accessory muscles and clear to auscultation bilaterally Cardio S1 normal heart sound, S2 normal heart sound, no murmurs, no rub, no gallops, no clicks and no JVD Cardio Narrative: Irregular irregular with mild tachycardia GI normal to inspection, nondistended, normoactive bowel sounds, soft to palpation, non-tender and non-distended Extremity normal to inspection and no clubbing, cyanosis or edema Peripheral Pulses: Yes pulses 2+ throughout Skin no rashes or lesions noted, no wounds, skin turgor normal, no jaundice, no petechiae and no mottling Neuro oriented x3, CN's II-XII intact bilaterally, moves all extremities and no focal motor deficits Sensorium / Orientation: awake, alert, oriented to person, oriented to place and oriented to time Speech: speech normal Psych affect normal Psych Narrative: Very pleasant and normally interactive, good eye contact Assessment & Plan Assessment/Plan (1) Acute UTI: (2) Atrial fibrillation with rapid ventricular response: (3) Anemia: (4) Thrombocytopenia: PLAN: Acute cystitis/UTI -Has had infections in the past consistent with E. coli -The the organisms have been sensitive to ceftriaxone -Continue ceftriaxone -Await identification and sensitivities -We will likely need a quinolone at discharge based on sensitivities from previous cultures and NATTY's -Check noncontrasted CT of chest given occult blood to rule out stones that could be precipitating infection and harboring bacteria PAF with RVR -Patient remains in atrial fibrillation -Continue metoprolol but increase dose to 100 mg twice daily -Per cardiology notes from 11/09/2020 this was his dose -Had been treated with aspirin based on a CHADS2 score of one at the time -Given recurrence will start Eliquis -Discontinue therapeutic Lovenox -TSH within normal limits -Last echo was January 2019 and showed an EF of 60% with mild LVH, stage I diastolic dysfunction and right ventricular systolic pressure of 40 mmHg -Suspect possible JORGE ALBERTO based on body habitus and would recommend outpatient po lysomnography -Cardiology follow-up as an outpatient after discharge Anemia -Hemoglobin appears stable and at baseline when compared to previous results Thrombocytopenia -Suspect related to acute infection and antibiotics -Trend -Platelet count is a 136,000 History of MS -Continue home medication Hypertension -Continue metoprolol and losartan BPH -Continue Flomax History of gout -Continue allopurinol DVT prophylaxis -Eliquis CODE STATUS -Full code Charges/Coding Visit Charges Inpatient E&M: 24278 Subs Hosp L3
--- NOTE | 2021-05-05 17:21 | CT_ITS ---
STUDY: CT ABDOMEN AND PELVIS WITHOUT CONTRAST REASON FOR EXAM: Male, 65 years old. kidney stone RADIATION DOSAGE (If Supplied By Facility): CTDIvol = ( 22.50 ) mGy, DLP = ( 1208.69 ) mGycm TECHNIQUE: Transaxial images were obtained from the dome of the diaphragm to the symphysis pubis without oral contrast, and without intravenous contrast. Sagittal and coronal images were reconstructed. Individualized dose optimization techniques were used for this CT. COMPARISON: None. FINDINGS: The visualized lung bases are unremarkable. The visualized portions of the heart are within normal limits. Normal liver. Normal gallbladder and extrahepatic biliary system. Normal spleen. Normal pancreas. Chronic perinephric stranding is present. Right nonobstructive punctate nephrolith is present. Adrenal glands. Normal right kidney. Normal left kidney. Normal visualized stomach. Normal small intestine. Normal colon. The appendix is visualized and appears normal. Normal abdominal aorta. Normal inferior vena cava. Normal retroperitoneum. There is mild wall thickening and apparent inflammatory stranding surrounding the bladder lumen. There are prostatic calcifications. Normal abdominal wall. Normal osseous structures. CT/Abdomen/Pelvis without Cont IMPRESSION: 1. Nonobstructive right renal punctate nephrolith. 2. Mild bladder wall thickening with surrounding appearance of mild inflammatory stranding concerning for underlying cystitis with appearance of bilateral chronic perinephric stranding though underlying inflammatory processes also a consideration, clinically correlate. Electronically Signed: Bryan Dickson DO at 10:11 EDT , Service support ,
[2021-05-05] MEDS: Metoprolol Tartrate 100 MG Tablet PO (21:00)
[2021-05-05] MEDS: Tamsulosin HCl 0.4 MG Capsule PO (21:00)
[2021-05-05] MEDS: APIXABAN 5 MG TABLET PO (21:00)
[2021-05-05] MEDS: Losartan Potassium 100 MG Tablet PO (21:00)
[2021-05-06] VITALS (16 sets, daily range): BP systolic 107–129; BP diastolic 74–92; PULSE 102–130; RESP 16–18; TEMP 36.3–37.4; O2SAT 96–100
[2021-05-06] MEDS: Metoprolol Tartrate 5 MG/5 ML Vial 2.5 MG IV (02:44)
[2021-05-06] MEDS: 0.9% Saline Lock 10 ML Syringe IV ×3 (02:48→20:48)
[2021-05-06] MEDS: Metoprolol Tartrate 100 MG Tablet PO ×2 (05:18→20:49)
--- NOTE | 2021-05-06 05:22 | NURSING ---
Lopressor po given early per Dr Rice's order.
[2021-05-06] MEDS: Metoprolol Tartrate 5 MG/5 ML Vial IV (05:28)
[2021-05-06 06:41] LABS: Absolute Lymphocyte Count 0.15 X10^3/uL (0.83-4.51); Absolute Neutrophil Count 2.4 X10^3/uL (2.0-7.7); Eosinophil# 0.08 X10^3/uL; Eosinophils% 2.5 % (0-5); Hematocrit 35.9 % (40-54); Hemoglobin 11.9 g/dL (13.0-16.5); Lymphocyte # 0.15 X10^3/ul (0.83-4.51); Lymphocyte % 4.7 % (19-41); Mean Corp Hgb Conc 33.1 g/dL (32-36); Mean Corpuscular Volume 99.4 fL (80-94); Mean Platelet Vol. 12.4 fl (6.2-12.0); Monocyte# 0.53 X10^3/uL; Monocyte% 16.6 % (0-10); NRBC Flagged by Analyzer 0 % (0-5); Neutrophil # 2.43 X10^3/uL (2.7-7.7); Neutrophil % 75.9 % (47-70); POSITIVE DIFFERENTIAL YES; Platelet Count 148 K/mm3 (150-450); RBC Distribution Width CV 13.2 % (11.6-14.6); RBC Distribution Width SD 48.5 fl (35.1-43.9); Red Blood Count 3.61 M/mm3 (4.6-6.2); White Blood Count 3.2 K/mm3 (4.4-11.0)
[2021-05-06 06:43] LABS: Differential Indicated SCAN CRITERIA MET
[2021-05-06 07:14] LABS: ALB/GLOB Ratio 0.7 RATIO (0.9-2.4); AST(SGOT) 26 U/L (15-37); Alanine Aminotransfer ALT/SGPT 33 U/L (16-61); Albumin, Serum 2.7 g/dL (3.2-5.0); Alkaline Phosphatase 77 U/L (45-117); Anion Gap 6 (5-15); BUN 20 mg/dL (7-18); Calcium,Total 8.5 mg/dL (8.5-10.1); Chloride 111 mmol/L (98-107); Creatinine, Serum 0.84 mg/dL (0.70-1.30); EST Glomerular Filtration Rate 99 mL/min (>60); Est Glom Filt Rate - Afr Amer 119 mL/min (>60); Estimated Creatinine Clearance 104.65 ml/min; Globulin 3.9 g/dL (2.2-4.2); Glucose 119 mg/dL (74-106); Potassium 3.8 mmol/L (3.5-5.1); Protein, Total 6.6 g/dL (6.4-8.2); Sodium Level 140 mmol/L (136-145)
[2021-05-06] MEDS: Losartan Potassium 100 MG Tablet PO (09:52)
[2021-05-06] MEDS: APIXABAN 5 MG TABLET PO ×2 (09:52→20:49)
--- NOTE | 2021-05-06 09:56 | PN.HOSP_ITS ---
Subjective Subjective Patient states he is really feeling okay. Denies any complaints this morning. Heart rates have still been uncontrolled RVR through the night despite starting his home [id number] at 100 mg twice daily. As needed beta-leandra given overnight. Objective Data Objective Data Vital Signs: Vital Signs Temp Pulse Resp BP Pulse Ox 97.6 F L 115 H 18 109/74 98 05/06/21 09:50 05/06/21 09:50 05/06/21 09:50 05/06/21 09:50 05/06/21 09:50 Oxygen Delivery Method Room Air Weight: 136.8 kg Body Mass Index (BMI) 38.7 Intake & Output: Intake and Output for Last 24 Hours 05/04/21 05/05/21 05/06/21 23:59 23:59 23:59 Intake Total 3050 / 3050 2925 / 3225 600 / 600 Output Total 0 / 0 1300 / 1625 725 / 725 Balance 3050 / 3050 1625 / 1600 -125 / -125 Lab / Micro Data Result Diagrams: 05/06/21 06:00 05/06/21 06:00 Labs: Laboratory Results - last 24 hr 05/06/21 06:00: WBC 3.2 L, RBC 3.61 L, Hgb 11.9 L, Hct 35.9 L, MCV 99.4 H, MCH 33.0 H, MCHC 33.1, RDW Std Deviation 48.5 H, RDW Coeff of Carmelo 13.2, Plt Count 148 L, MPV 12.4 H, Immature Gran % (Auto) 0.300, Neut % (Auto) 75.9 H, Lymph % (Auto) 4.7 L, Winston % (Auto) 16.6 H, Eos % (Auto) 2.5, Baso % (Auto) 0.0, Absolute Neuts (auto) 2.4, Absolute Lymphs (auto) 0.15 L, Nucleated RBC % 0 05/06/21 06:00: Sodium 140, Potassium 3.8, Chloride 111 H, Carbon Dioxide 23.0, Anion Gap 6, BUN 20 H, Creatinine 0.84, Estim Creat Clear Calc 104.65, Est GFR (MDRD) Af Amer 119, Est GFR (MDRD) Non-Af 99, BUN/Creatinine Ratio 24.0 H, Glucose 119 H, Calcium 8.5, Total Bilirubin 0.50, AST 26, ALT 33, Alkaline Phosphatase 77, Total Protein 6.6, Albumin 2.7 L, Globulin 3.9, Albumin/Globulin Ratio 0.7 L Micro: Microbiology 05/04/21 20:42 Urine, Clean Catch Urine Culture - Preliminary Gram negative clary Radiography Diagnostic Testing: Radiology Impression Echocardiogram 05/05/21 07:00 Interpretation Summary The estimated ejection fraction is 55 %. No evidence for diastolic dysfunction. Trivial mitral valve insufficiency. Mild tricuspid valve insufficiency. Pulmonary artery systolic pressure is 40-45 mmHg. Ordering Physician: Vanessa Rice Referring Physician: Salvador Olivarez Performed By: Edwina Glover, RDCS, RVT Physical Exam Const alert, oriented x3 and no apparent distress Constitutional Narrative: Obese white male, sitting up in a chair at the [facility], watching television appears very comfortable, nontoxic General Appearance: cooperative Exam Limitations: no limitations HEENT normocephalic, head/scalp atraumatic, hearing grossly normal bilaterally and moist oral mucous membranes Head and Scalp: normocephalic Neck Neck Narrative: Trachea midline, no thyroid enlargement or nodules palpated Resp normal respiratory effort, no retractions, no use of accessory muscles and clear to auscultation bilaterally Cardio S1 normal heart sound, S2 normal heart sound, no murmurs, no rub, no gallops, no clicks and no JVD Cardio Narrative: Irregular irregular and remains with mild tachycardia GI normal to inspection, nondistended, normoactive bowel sounds, soft to palpation, non-tender and non-distended GI Narrative: No flank pain Extremity normal to inspection, full ROM and no clubbing, cyanosis or edema Neuro oriented x3, CN's II-XII intact bilaterally, moves all extremities and no focal motor deficits Sensorium / Orientation: awake, alert, oriented to person, oriented to place and oriented to time Speech: speech normal Psych affect normal Psych Narrative: Extremely pleasant and interactive Assessment & Plan Assessment/Plan (1) Atrial fibrillation with rapid ventricular response: (2) Acute UTI: PLAN: Acute cystitis/UTI -Patient does not meet sepsis criteria on admission(no hypo or hyperthermia, no leukocytosis, tachycardia was from A. fib, no hypotension, no endorgan damage) -Has had infections in the past consistent with E. coli--> gram-negative clary is currently growing and documented as probable Proteus -Continue ceftriaxone -Await sensitivities and clear documentation of identification -CT abdomen and pelvis pending read--> was performed last night but not read by radiology discussed with CT this morning and radiology to read soon -Patient does have hematuria and unclear if this is related to infection or otherwise -Patient does follow with urology as an outpatient PAF with RVR -Patient remains in atrial fibrillation -Patient is on baseline metoprolol dose 100 mg twice daily -Continue current Eliquis 5 mg twice daily--> initiated during this hospitalization -Per cardiology notes from 11/09/2020 this was his dose -Given continued rapid ventricular rate we will consult cardiology for further input -TSH within normal limits -Last echo was January 2019 and showed an EF of 60% with mild LVH, stage I diastolic dysfunction and right ventricular systolic pressure of 40 mmHg--> echo done 05/05/2021 shows EF of 55%, no diastolic dysfunction, trivial mitral valve insufficiency and pulmonary artery hypertension with pulmonary artery systolic pressures of 40 to 45 mmHg -Suspect possible JORGE ALBERTO based on body habitus and would recommend outpatient polysomnography -Cardiac enzymes have been cycled and are not elevated Anemia -Hemoglobin appears stable and at baseline when compared to previous results Thrombocytopenia -Suspect related to acute infection and antibiotics -Trending up -Platelet count is a 148,000 History of MS -Continue home medication Hypertension -Continue metoprolol and losartan BPH -Continue Flomax History of gout -Continue allopurinol DVT prophylaxis -Eliquis CODE STATUS -Full code Charges/Coding Visit Charges Inpatient E&M: 60054 Subs Hosp L2
--- NOTE | 2021-05-06 15:05 | PCM.CONS.C ---
Assessment & Plan Assessment/Plan (1) Atrial fibrillation with rapid ventricular response: PLAN: Rate is uncontrolled likely secondary to patient's underlying UTI with sepsis as well. Recommend decreasing the losartan and adding Cardizem. HPI Consult Data Date of Consult: 05/06/21 HPI Narrative HPI Narrative: DAVID RAMIREZ, is a 65 M who was admitted with urosepsis. He was also found to be in A. fib with RVR. Patient does have history of A. fib. He also has a history of multiple sclerosis, hypertension and diabetes. Patient had an echo this admission which showed preserved EF. Review of systems: All systems reviewed. All else is negative except that in HPI [facility] Medical History (Updated 05/06/21 @ 10:[address] Carissa Barnhart, DO) Bilateral enlargement of atria BPH (benign prostatic hyperplasia) Essential (primary) hypertension Multiple sclerosis Paroxysmal atrial fibrillation Right bundle branch block Sepsis Sepsis Type 2 diabetes mellitus Home Medications allopurinol 300 mg tablet 300 mg PO DAILY PRN 10/15/19 [History Last Taken Unknown] aspirin 81 mg PO DAILY 05/04/21 [History Last Taken Unknown] fingolimod [Gilenya] 0.5 mg PO DAILY 05/04/21 [History Last Taken Unknown] losartan 100 mg PO DAILY 05/04/21 [History Last Taken Unknown] metoprolol tartrate 100 mg PO DAILY 05/04/21 [History Last Taken Unknown] tamsulosin 0.4 mg PO DAILY@1730 05/04/21 [History Last Taken Unknown] apixaban [Eliquis] 5 mg PO BID #60 tab 05/05/21 [Rx Last Taken Unknown] Allergy/AdvReac Type Severity Reaction Status Date / Time No Known Allergies Allergy Verified 05/04/21 19:19 Family History Mother Cancer Father Heart disease Cancer Surgical History H/O arthroscopy of knee H/O hand surgery Social History (Updated 05/05/21 @ 00:07 by Eduarda Vora) household members: spouse housing: house number of children: 2 current occupational status: employed 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 history of recent travel: No Smoking Status: Never smoker alcohol intake: former substance use type: does not use caffeine: No eating out: 1-3 times/week what type of physical activity do you participate in: none sarah/muslim: Jehovah'[employer] Witness seatbelt use: always do you feel safe at home: Yes Physical Exam Const alert and oriented x3 Orientation / Consciousness: awake HEENT normocephalic Eyes no scleral icterus Chest inspection of chest normal Resp clear to auscultation bilaterally Cardio Cardio Narrative: Irregular rhythm Neuro oriented x3 Psych mental status grossly normal Charges/Coding Visit Charges Inpatient E&M: 47014 Init Hosp L2 Objective Data Vital Signs: Vital Signs Temp Pulse Resp BP Pulse Ox 97.6 F L 102 H 18 109/74 98 05/06/21 09:50 05/06/21 11:00 05/06/21 09:50 05/06/21 09:50 05/06/21 09:50 Oxygen Delivery Method Room Air Weight: 301 lb 9.478 oz Body Mass Index (BMI) 38.7 Intake & Output: Intake and Output for Last 24 Hours 05/04/21 05/05/21 05/06/21 23:59 23:59 23:59 Intake Total 3050 / 3050 2925 / 3225 1080 / 1080 Output Total 0 / 0 1300 / 1625 1075 / 1075 Balance 3050 / 3050 1625 / 1600 5 / 5 Lab / Micro Data Result Diagrams: 05/06/21 06:00 05/06/21 06:00 Labs: Laboratory Results - last 24 hr 05/06/21 06:00: WBC 3.2 L, RBC 3.61 L, Hgb 11.9 L, Hct 35.9 L, MCV 99.4 H, MCH 33.0 H, MCHC 33.1, RDW Std Deviation 48.5 H, RDW Coeff of Carmelo 13.2, Plt Count 148 L, MPV 12.4 H, Immature Gran % (Auto) 0.300, Neut % (Auto) 75.9 H, Lymph % (Auto) 4.7 L, Caroline % (Auto) 16.6 H, Eos % (Auto) 2.5, Baso % (Auto) 0.0, Absolute Neuts (auto) 2.4, Absolute Lymphs (auto) 0.15 L, Nucleated RBC % 0 05/06/21 06:00: Sodium 140, Potassium 3.8, Chloride 111 H, Carbon Dioxide 23.0, Anion Gap 6, BUN 20 H, Creatinine 0.84, Estim Creat Clear Calc 104.65, Est GFR (MDRD) Af Amer 119, Est GFR (MDRD) Non-Af 99, BUN/Creatinine Ratio 24.0 H, Glucose 119 H, Calcium 8.5, Total Bilirubin 0.50, AST 26, ALT 33, Alkaline Phosphatase 77, Total Protein 6.6, Albumin 2.7 L, Globulin 3.9, Albumin/Globulin Ratio 0.7 L Micro: Microbiology 05/04/21 20:42 Urine, Clean Catch Urine Culture - Preliminary Gram negative clary Cardiology Labs/Tests 05/06/21 06:00: WBC 3.2 L, RBC 3.61 L, Hgb 11.9 L, Hct 35.9 L, MCV 99.4 H, MCH 33.0 H, MCHC 33.1, Plt Count 148 L, MPV 12.4 H, Immature Gran % (Auto) 0.300, Neut % (Auto) 75.9 H, Lymph % (Auto) 4.7 L, Caroline % (Auto) 16.6 H, Eos % (Auto) 2.5, Baso % (Auto) 0.0, Absolute Neuts (auto) 2.4, Nucleated RBC % 0 05/06/21 06:00: Sodium 140, Potassium 3.8, Chloride 111 H, Carbon Dioxide 23.0, Anion Gap 6, BUN 20 H, Creatinine 0.84, Est GFR (MDRD) Af Amer 119, Est GFR (MDRD) Non-Af 99, BUN/Creatinine Ratio 24.0 H, Glucose 119 H, Calcium 8.5, Total Bilirubin 0.50 Rhythm: EKG: ECHO: Stress Test: Cardiac Cath: PCI: CT Surgery: Holter monitor: EPS: PPM: CXR: Chest CT Scan: Radiography Diagnostic Testing: Radiology Impression Echocardiogram 05/05/21 07:00 Interpretation Summary The estimated ejection fraction is 55 %. No evidence for diastolic dysfunction. Trivial mitral valve insufficiency. Mild tricuspid valve insufficiency. Pulmonary artery systolic pressure is 40-45 mmHg. Ordering Physician: Vanessa Rice Referring Physician: Salvador Olivarez Performed By: Edwina Glover, RDCS, RVT Abdomen/Pelvis CT 05/05/21 17:21 IMPRESSION: 1. Nonobstructive right renal punctate nephrolith. 2. Mild bladder wall thickening with surrounding appearance of mild inflammatory stranding concerning for underlying cystitis with appearance of bilateral chronic perinephric stranding though underlying inflammatory processes also a consideration, clinically correlate. Electronically Signed: Bryan Dickson DO at 10:11 EDT , Service support ,
[2021-05-06] MEDS: Tamsulosin HCl 0.4 MG Capsule PO (16:55)
[2021-05-06] MEDS: dilTIAZem 30 MG Tablet PO ×2 (16:55→23:14)
[2021-05-07] VITALS (16 sets, daily range): BP systolic 104–131; BP diastolic 79–105; PULSE 68–133; RESP 16–20; TEMP 35.9–36.9; O2SAT 96–98
[2021-05-07] MEDS: Metoprolol Tartrate 5 MG/5 ML Vial IV (02:03)
[2021-05-07] MEDS: 0.9% Saline Lock 10 ML Syringe IV ×4 (02:06→21:53)
[2021-05-07] MEDS: dilTIAZem 25 MG/5 ML Vial IV BOLUS (03:12)
[2021-05-07] MEDS: dilTIAZem 30 MG Tablet PO (05:19)
[2021-05-07] MEDS: Metoprolol Tartrate 100 MG Tablet PO ×2 (10:25→21:17)
[2021-05-07] MEDS: APIXABAN 5 MG TABLET PO ×2 (10:25→21:17)
[2021-05-07] MEDS: Losartan Potassium 25 MG Tablet PO (10:30)
[2021-05-07] MEDS: dilTIAZem 60 MG Tablet PO ×3 (12:08→23:13)
--- NOTE | 2021-05-07 14:27 | PCM.PN.HOSP ---
Subjective Subjective Patient states he is feeling well. Dysuria has resolved. We discussed that he is continuing to have rapid ventricular rate with his atrial fibrillation. He is frustrated that he cannot go home yet today. Objective Data Objective Data Vital Signs: Vital Signs Temp Pulse Resp BP Pulse Ox 97.8 F 103 H 18 127/91 H 97 05/07/21 12:06 05/07/21 12:06 05/07/21 12:06 05/07/21 12:06 05/07/21 12:06 Oxygen Delivery Method Room Air Weight: 136.8 kg Body Mass Index (BMI) 38.7 Intake & Output: Intake and Output for Last 24 Hours 05/05/21 05/06/21 05/07/21 23:59 23:59 23:59 Intake Total 2925 / 3225 1610 / 1730 460 / 460 Output Total 1300 / 1625 1575 / 1575 Balance 1625 / 1600 35 / 155 460 / 460 Lab / Micro Data Result Diagrams: 05/06/21 06:00 05/06/21 06:00 Micro: Microbiology 05/04/21 20:35 Blood Culture (Wb) - Right Forearm Blood Culture - Preliminary No growth in 48 hours. 05/04/21 20:00 Blood Culture (Wb) - Right Hand Blood Culture - Preliminary No growth in 48 hours. 05/04/21 20:42 Urine, Clean Catch Urine Culture - Final Proteus mirabilis Physical Exam Const alert, oriented x3 and no apparent distress Constitutional Narrative: Obese white male, sitting up in a chair at the bedside, watching television appears very comfortable, nontoxic General Appearance: cooperative Exam Limitations: no limitations HEENT normocephalic, head/scalp atraumatic, hearing grossly normal bilaterally and moist oral mucous membranes Head and Scalp: normocephalic Resp normal respiratory effort, no retractions, no use of accessory muscles and clear to auscultation bilaterally Cardio S1 normal heart sound, S2 normal heart sound, no murmurs, no rub, no gallops, no clicks and no JVD Cardio Narrative: Irregular irregular and remains with mild tachycardia GI normal to inspection, nondistended, normoactive bowel sounds, soft to palpation, non-tender and non-distended GI Narrative: No flank pain Extremity normal to inspection, full ROM and no clubbing, cyanosis or edema Neuro oriented x3 Sensorium / Orientation: awake and alert Assessment & Plan Assessment/Plan (1) Atrial fibrillation with rapid ventricular response: (2) Acute UTI: PLAN: Acute cystitis/UTI -Patient does not meet sepsis criteria on admission(no hypo or hyperthermia, no leukocytosis, tachycardia was from A. fib, no hypotension, no end organ damage) -Proteus is growing in his urine and is pansensitive -Continue ceftriaxone for now but would recommend discharging home to complete a 10-day course -CT abdomen and pelvis shows only a punctate stone and bladder wall thickening which is not surprising given his UTI -Patient does have hematuria and unclear if this is related to infection or otherwise -Would recommend outpatient UA -Patient does follow with urology as an outpatient--> follow-up with after discharge PAF with RVR -Patient remains in atrial fibrillation -Patient remains on baseline metoprolol dose 100 mg twice daily -Continue current Eliquis 5 mg twice daily--> initiated during this hospitalization -Cardizem added by cardiology yesterday and I uptitrated today -Discussed case with cardiology this morning and they recommended continuing inpatient monitoring as he does have concern for bradycardia if he reverts into normal rhythm with his multiple sclerosis medications -TSH within normal limits -Last echo was January 2019 and showed an EF of 60% with mild LVH, stage I diastolic dysfunction and right ventricular systolic pressure of 40 mmHg--> echo done 05/05/2021 shows EF of 55%, no diastolic dysfunction, trivial mitral valve insufficiency and pulmonary artery hypertension with pulmonary artery systolic pressures of 40 to 45 mmHg -Suspect possible JORGE ALBERTO based on body habitus and would recommend outpatient polysomnography -Cardiac enzymes have been cycled and are not elevated Anemia -Hemoglobin appears stable and at baseline when compared to previous results Thrombocytopenia -Resolving History of MS -Continue home medication Hypertension -Continue metoprolol -Continue losartan but reduce dose given up titration of Cardizem -Continue Cardizem BPH -Continue Flomax History of gout -Continue allopurinol DVT prophylaxis -Eliquis CODE STATUS -Full code
--- NOTE | 2021-05-07 17:06 | PCM.PN.CARD ---
Subjective Subjective Patient has any cardiac complaints. Heart rate was elevated this morning and his Cardizem was increased. His heart rate is under control at this time. Objective Data Vital Signs: Vital Signs Temp Pulse Resp BP Pulse Ox 97.8 F 115 H 18 127/91 H 97 05/07/21 12:06 05/07/21 14:51 05/07/21 12:06 05/07/21 12:06 05/07/21 12:06 Oxygen Delivery Method Room Air Weight: 301 lb 9.478 oz Body Mass Index (BMI) 38.7 Intake & Output: Intake and Output for Last 24 Hours 05/05/21 05/06/21 05/07/21 23:59 23:59 23:59 Intake Total 2925 / 3225 1610 / 1730 460 / 460 Output Total 1300 / 1625 1575 / 1575 Balance 1625 / 1600 35 / 155 460 / 460 Lab / Micro Data Result Diagrams: 05/06/21 06:00 05/06/21 06:00 Micro: Microbiology 05/04/21 20:35 Blood Culture (Wb) - Right Forearm Blood Culture - Preliminary No growth in 48 hours. 05/04/21 20:00 Blood Culture (Wb) - Right Hand Blood Culture - Preliminary No growth in 48 hours. 05/04/21 20:42 Urine, Clean Catch Urine Culture - Final Proteus mirabilis Cardiology Labs/Tests Rhythm: EKG: ECHO: Stress Test: Cardiac Cath: PCI: CT Surgery: Holter monitor: EPS: PPM: CXR: Chest CT Scan: Physical Exam Const alert and oriented x3 Orientation / Consciousness: awake HEENT normocephalic Eyes no scleral icterus Chest inspection of chest normal Resp normal respiratory effort Cardio Cardio Narrative: Irregular rhythm Psych mental status grossly normal Assessment & Plan Assessment/Plan (1) Atrial fibrillation with rapid ventricular response: PLAN: Cardizem was increased this morning as patient's heart rate was still uncontrolled. Heart rate is better controlled. Gilenya that he takes for multiple sclerosis can also cause AV block. As his infection resolves, we may have to lower his beta-leandra or Cardizem dose as an outpatient monitoring his heart rate. Patient's was inquiring about this and we discussed that if he has any symptoms suggestive of bradycardia we may have to lower his medications. Also if he cardioverts we may have to lower his medication as well. Monitoring him overnight with telemetry we will also give us more information regarding what doses of beta-leandra and calcium channel leandra we should discharge him home on. Charges/Coding Visit Charges Inpatient E&M: 15888 Subs Hosp L2
[2021-05-07] MEDS: Tamsulosin HCl 0.4 MG Capsule PO (17:19)
[2021-05-08 03:00] VITALS: PULSE 89
[2021-05-08 05:30] VITALS: BP 115/85; PULSE 117; RESP 18; TEMP 36.7; O2SAT 99
[2021-05-08] MEDS: dilTIAZem 60 MG Tablet PO (05:34)
[2021-05-08 07:08] VITALS: PULSE 99
--- NOTE | 2021-05-08 08:29 | PN.CARD_ITS ---
Subjective Subjective Patient seen and evaluated. Appears to be doing better this morning. Objective Data Vital Signs: Vital Signs Temp Pulse Resp BP Pulse Ox 98.0 F 99 18 115/85 H 99 05/08/21 05:30 05/08/21 07:08 05/08/21 05:30 05/08/21 05:30 05/08/21 05:30 Oxygen Delivery Method Room Air Weight: 301 lb 9.478 oz Body Mass Index (BMI) 38.7 Intake & Output: Intake and Output for Last 24 Hours 05/06/21 05/07/21 05/08/21 23:59 23:59 23:59 Intake Total 1610 / 1730 1090 / 1090 60 / 60 Output Total 1575 / 1575 Balance 35 / 155 1090 / 1090 60 / 60 Lab / Micro Data Result Diagrams: 05/06/21 06:00 05/06/21 06:00 Micro: Microbiology 05/04/21 20:35 Blood Culture (Wb) - Right Forearm Blood Culture - Preliminary No growth in 48 hours. 05/04/21 20:00 Blood Culture (Wb) - Right Hand Blood Culture - Preliminary No growth in 48 hours. 05/04/21 20:42 Urine, Clean Catch Urine Culture - Final Proteus mirabilis Cardiology Labs/Tests Rhythm: EKG: ECHO: Stress Test: Cardiac Cath: PCI: CT Surgery: Holter monitor: EPS: PPM: CXR: Chest CT Scan: Physical Exam Const oriented x3 and healthy appearing Orientation / Consciousness: awake HEENT normocephalic Eyes PERRL and conjunctivae normal Neck supple, no JVD and no carotid bruits Chest inspection of chest normal Resp normal respiratory effort and clear to auscultation bilaterally Cardio Palpation: normal PMI Rate: regular rate Rhythm: abnormal rhythm irregularly irregular Heart Sounds: S1 normal and S2 normal Peripheral Pulses: pulses 2+ throughout GI normal to inspection, nondistended, normoactive bowel sounds Extremity normal to inspection and no clubbing, cyanosis or edema Psych mental status grossly normal Assessment & Plan Assessment/Plan (1) Paroxysmal atrial fibrillation: PLAN: Patient presents with paroxysmal atrial fibrillation. This appears to have been worsened by the urinary tract infection. He was treated with his anticoagulation as well as the beta-leandra which was continued. He was also started on oral diltiazem. Due to the interaction with a multiple sclerosis medication I would recommend I would put him on a lower dose of long-acting diltiazem CD 120 mg a day. * We will schedule him for an office visit in the next few days for an EKG and then adjust the medication dose as necessary. * I have discussed this with the patient in the office and are to be arranged. Stable for discharge from my standpoint. (2) Essential (primary) hypertension: PLAN: His blood pressure is under good control I would not recommend we make any major changes. Thank you for allowing me to participate in the care of your patient. Please don't hesitate to call if any issues arise.
[2021-05-08 09:11] VITALS: BP 116/81; PULSE 106; RESP 18; TEMP 36.8; O2SAT 99
[2021-05-08 09:16] VITALS: PULSE 106
[2021-05-08] MEDS: APIXABAN 5 MG TABLET PO (09:16)
[2021-05-08] MEDS: Metoprolol Tartrate 100 MG Tablet PO (09:16)
[2021-05-08] MEDS: Losartan Potassium 25 MG Tablet PO (09:16)
[2021-05-08] MEDS: dilTIAZem CD 120 MG Capsule PO (09:16)
--- NOTE | 2021-05-08 11:34 | PCM.DC ---
Discharge Instructions Diet Discharge Diet: Low fat / Low cholesterol and 2000 mg Sodium Diet Activity Discharge Activity: Return to Normal Activity Follow Up Care Test Results: Test results from this visit will be discussed in further detail at your follow-up appointment, if applicable. Discharge Plan Admission Admit Date/Time: 05/04/21 21:54 Primary Reason for Your Visit: Acute UTI, A fib wit RVR Attending Provider: Orquidea Lee Primary Care Provider: Salvador Olivarez Consulting Providers: Clarisa Arreola Instructions Additional Instructions / Restrictions: Take note of changes to your medications. Continue to follow-up with cardiology as planned. Complete your antibiotics as prescribed. Discharge Orders/Prescriptions Prescriptions: New Eliquis 5 mg tablet 5 mg PO BID Qty: 60 RF: 1 metoprolol tartrate 100 mg Tablet 100 mg PO BID 30 Days Qty: 60 RF: 0 losartan 25 mg Tablet 25 mg PO DAILY 30 Days Qty: 30 RF: 0 diltiazem HCl 120 mg Capsule,Extended Release 24hr 120 mg PO DAILY 30 Days Qty: 30 RF: 0 cefdinir 300 mg capsule 300 mg PO BID Qty: 8 RF: 0 Continued allopurinol 300 mg tablet 300 mg PO DAILY PRN (Reason: gout) RF: 0 tamsulosin 0.4 MG capsule 0.4 mg PO DAILY@1730 RF: 0 Gilenya 0.5 mg capsule 0.5 mg PO DAILY RF: 0 Discontinued metoprolol tartrate 100 mg tablet 100 mg PO DAILY RF: 0 aspirin 81 mg tablet,delayed release (DR/EC) 81 mg PO DAILY RF: 0 losartan 100 mg tablet 100 mg PO DAILY RF: 0 Referrals / Follow Up: Alfonzo Monte MD [STAFF PHYSICIAN] - 05/11/21 1:45 pm (YOU WILL LASO HAVE A FOLLOW UP EKG.) Salvador Olivarez MD [Primary Care Provider] - Within 2 Weeks Disposition Disposition (needs filled in before D/C Order can be placed): Home, Self Care
--- NOTE | 2021-05-08 12:32 | DS.PCM_ITS ---
Providers Date of Admission: 05/04/21 Date of Discharge: 05/08/21 Primary Care Physician: Dr. Salvador Olivarez MD Consultations 05/06/21 07:25 Consult: Cardiology Routine Consulting Provider: Clarisa Arreola Reason for Consult: afib with rvr EMERGENT Consult: No MD Notified: Yes Date Notified: 05/06/21 Time Notified: 13:50 Method of Notification: Text Comments:: sent text earlier this am resent and went to him 1345 Reason For Visit: SEPSIS DUE TO UTI, AFIB WITH RVR Diagnosis Discharge Diagnosis (1) Paroxysmal atrial fibrillation: Status: Chronic Code(s): I48.0 - Paroxysmal atrial fibrillation (2) Essential (primary) hypertension: Status: Chronic Code(s): I10 - Essential (primary) hypertension Medications at Discharge Home Medications allopurinol 300 mg tablet 300 mg PO DAILY PRN 10/15/19 Gilenya 0.5 mg PO DAILY 05/04/21 tamsulosin 0.4 mg PO DAILY@1730 05/04/21 apixaban [Eliquis] 5 mg PO BID #60 tab 05/05/21 cefdinir 300 mg PO BID #8 cap 05/08/21 diltiazem HCl 120 mg PO DAILY 30 Days #30 cap 05/08/21 losartan 25 mg PO DAILY 30 Days #30 tab 05/08/21 metoprolol tartrate 100 mg PO BID 30 Days #60 tab 05/08/21 Hospital Course Operations None Procedures 2-D Echocardiogram (05/05/21 - EF 55%) Summary of Care Provided Minutes Spent on Discharge: 45 Hospital Course: 65-year-old male with multiple comorbidities who presented to his primary care doctor's office with complaints of decreased urine output. He was found to be in A. fib with RVR. He was sent to the ED. In the ED, his heart rate was in the 120s. His urinalysis was suggestive of acute UTI. He was managed to the progressive care unit as A. fib with RVR and UTI. He was started on antibiotics. Cardiology was consulted. Cardizem was added. He was started on Eliquis. 2D echo done in this admission showed EF of 55%, no diastolic dysfunction, trivial mitral valve insufficiency, pulmonary artery hy pertension with pulmonary artery systolic pressures of 40-45. Patient's heart rate became better controlled. His Cardizem dose was decreased to long-acting diltiazem CD 120 mg a day. He will follow up with cardiology in the next few days in the outpatient. Urine cultures grew Proteus mirabilis, pansensitive. Patient was discharged on 4 more days of cefdinir making a total of 7 days. Physical Exam Narrative General: Alert, Oriented x3, Cooperative, No apparent distress HEENT: Atraumatic, PERRLA, EOMI, Normocephalic Oral: Moist Mucosa Neck: Supple Lungs: Normal air movement, Diminished Cardiovascular: Regular rate, Regular Rhythm, Normal S1, Normal S2, No murmurs Abdomen: Bowel Sounds Present, Soft, Non Tender, Non-Distended, No Hepato- splenomegaly Extremities: Bilateral pedal edema +1, worse in the left leg Skin: Chronic left lower leg wound, dressed Neurological: Cranial nerves II-XII grossly intact, Neuro grossly intact Psych/Mental Status: Normal Affect, Appropriate Weight / BMI Weight Weight: 136.8 kg Body Mass Index (BMI) 38.7 ABG / Lab / Microbiology Data Result Diagrams: 05/06/21 06:00 05/06/21 06:00 Microbiology: Microbiology 05/04/21 20:35 Blood Culture (Wb) - Right Forearm Blood Culture - Preliminary No growth in 48 hours. 05/04/21 20:00 Blood Culture (Wb) - Right Hand Blood Culture - Preliminary No growth in 48 hours. 05/04/21 20:42 Urine, Clean Catch Urine Culture - Final Proteus mirabilis D/C Instructions Discharge Diet: Low fat / Low cholesterol and 2000 mg Sodium Diet Meaningful Use Info Meaningful Use Diagnoses (Choose all that apply): None applicable Discharge Plan Admission Admit Date/Time: 05/04/21 21:54 Primary Reason for Your Visit: Acute UTI, A fib wit RVR Attending Provider: Orquidea Lee Primary Care Provider: Salvador Olivarez Consulting Providers: Clarisa Arreola Instructions Additional Instructions / Restrictions: Take note of changes to your medications. Continue to follow-up with cardiology as planned. Complete your antibiotics as prescribed. Discharge Orders/Prescriptions Prescriptions: New Eliquis 5 mg tablet 5 mg PO BID Qty: 60 RF: 1 metoprolol tartrate 100 mg Tablet 100 mg PO BID 30 Days Qty: 60 RF: 0 losartan 25 mg Tablet 25 mg PO DAILY 30 Days Qty: 30 RF: 0 diltiazem HCl 120 mg Capsule,Extended Release 24hr 120 mg PO DAILY 30 Days Qty: 30 RF: 0 cefdinir 300 mg capsule 300 mg PO BID Qty: 8 RF: 0 Continued allopurinol 300 mg tablet 300 mg PO DAILY PRN (Reason: gout) RF: 0 tamsulosin 0.4 MG capsule 0.4 mg PO DAILY@1730 RF: 0 Gilenya 0.5 mg capsule 0.5 mg PO DAILY RF: 0 Discontinued metoprolol tartrate 100 mg tablet 100 mg PO DAILY RF: 0 aspirin 81 mg tablet,delayed release (DR/EC) 81 mg PO DAILY RF: 0 losartan 100 mg tablet 100 mg PO DAILY RF: 0 Referrals / Follow Up: Alfonzo Monte MD [STAFF PHYSICIAN] - 05/11/21 1:45 pm (YOU WILL LASO HAVE A FOLLOW UP EKG.) Salvador Olivarez MD [Primary Care Provider] - Within 2 Weeks Disposition Disposition (needs filled in before D/C Order can be placed): Home, Self Care Charges/Coding Visit Charges Inpatient E&M: 37587 Disch Hosp
== END 2021-05-08 14:17 | disposition home or self-care (01) | DRG 309 ==
LOC: ED 21:39 → PCU 21:59
PROVIDERS: Internal Medicine; Admitting Provider Student in an Organized Health Care Education/Training Program; Emergency Provider Emergency Medicine; PCP Family Medicine; Visit Provider Internal Medicine
DX: I48.0 Paroxysmal atrial fibrillation (principal); N39.0 Urinary tract infection, site not specified; B96.4 Proteus (mirabilis) (morganii) as the cause of diseases classified elsewhere; G35 Multiple sclerosis; I10 Essential (primary) hypertension; N40.0 Benign prostatic hyperplasia without lower urinary tract symptoms; M10.9 Gout, unspecified; E66.9 Obesity, unspecified; Z68.38 Body mass index [BMI] 38.0-38.9, adult; D64.9 Anemia, unspecified; D69.6 Thrombocytopenia, unspecified
CPT/HCPCS: 36415; 71045; 74176; 80048; 80053; 81001; 83605; 84443; 84484; 85025; 87040; 87077; 87086; 87088; 87186; 93005; 93306; 97802; 99285; J7030; P9612; Q9957; A4216; C8929; J0696; J3490

== ENCOUNTER → 2021-05-18 12:24 | Outpatient (CLI) | payer OTHER, SELFPAY ==
[2021-05-04 23:19] VITALS: BMI 38.7
== END ==
PROVIDERS: PCP Family Medicine; Referring Provider Internal Medicine Cardiovascular Disease; Visit Provider Internal Medicine Cardiovascular Disease
DX: I48.0 Paroxysmal atrial fibrillation (principal); I45.10 Unspecified right bundle-branch block
CPT/HCPCS: 93225; 93226

== ENCOUNTER 2021-07-21 11:04 | Day surgery (SDC) | payer OTHER, SELFPAY ==
[2021-07-19 09:00] VITALS: BMI 39.0
[2021-07-21 11:10] LABS: Anion Gap 6 (5-15); BUN 18 mg/dL (7-18); BUN/Creat Ratio 22.3 RATIO (10-20); Calcium,Total 8.7 mg/dL (8.5-10.1); Chloride 107 mmol/L (98-107); Creatinine, Serum 0.81 mg/dL (0.70-1.30); EST Glomerular Filtration Rate 103 mL/min (>60); Est Glom Filt Rate - Afr Amer 124 mL/min (>60); Estimated Creatinine Clearance 108.53 ml/min; Glucose 149 mg/dL (74-106); Sodium Level 141 mmol/L (136-145)
--- NOTE | 2021-07-21 12:11 | PCM.OP.BLANK ---
Problems Associated Problem List Diagnoses (1) Persistent atrial fibrillation: Operative Report Date of Procedure: 07/21/21 DC cardio version. 65-year-old man with a history of atrial fibrillation. The patient was seen by Dr. Altman of the critical care division. Informed consent was obtained. The patient was ascertained to be therapeutically anticoagulated. Anterior-posterior pads were applied. The patient was then administered 100 mg of intravenous propofol. 300 J of synchronized DC cardioversion energy were applied with prompt reversal to sinus rhythm. Patient tolerated the procedure well. Conclusion: Successful, DC cardioversion from atrial fibrillation to sinus rhythm. Follow office protocol.
--- NOTE | 2021-07-21 13:56 | PCM.OP.PRO ---
Assessment & Plan Assessment/Plan (1) Persistent atrial fibrillation: (2) Essential (primary) hypertension: Procedure Report Date of Procedure: 07/21/21 CONSCIOUS SEDATION REPORT BRIEF HISTORY OF PRESENT ILLNESS: The patient is a 65-year-old male who presented to [facility] for an elective outpatient cardioversion due to underlying atrial fibrillation. The patient reports no PO intake since midnight, but is currently therapeutic on anticoagulation. The patient does not have a history of JORGE ALBERTO. The patient reports no history of smoking and COPD. The patient denies any recent constitutional symptoms such as fevers, chills, nausea or vomiting. The patient denies previous applicable anesthetic complications. PHYSICAL EXAMINATION: VITAL SIGNS: Reviewed and were acceptable. GENERAL: The patient is a male, in no apparent distress, speaking in full sentences. HEENT: Normocephalic, atraumatic. Mucous membranes are moist and pink. Good mouth opening noted. Trachea is midline. Good neck mobility. MP IV CHEST: S1, S2 irregularly irregular. No murmurs, rubs or gallops were noted. LUNGS: Clear to auscultation bilaterally without appreciable wheezes, rales or rhonchi. ABDOMEN: Soft, nontender, nondistended. Positive bowel sounds. EXTREMITIES: There is no clubbing, cyanosis or edema. ASA Class: II DESCRIPTION OF PROCEDURE: After confirmation of informed consent, the patient's anesthesia plan was reviewed in detail. Propofol was chosen. Risks and benefits were reviewed and the patient agreed to proceed. At 12:01 PM, the patient was given 40 mg of propofol. The patient required a total of 100 mg of propofol throughout the procedure to achieve appropriate sedation. The patient achieved an appropriate level of sedation and received 1 attempt synchronized cardioversion, at [address] Monte at the bedside. This was successful in achieving normal sinus rhythm. The patient was monitored until 12:15 PM, at which time the patient reached their baseline mental status and function. The patient tolerated the procedure well. COMPLICATIONS: None ESTIMATED BLOOD LOSS: None RECOMMENDATIONS: Okay to recover in usual fashion. Procedures Pulmonary 9xxxx: [id number] Con Sedation
--- NOTE | 2021-07-31 10:56 | HP.PCM_ITS ---
History and Physical Date of Admission: 07/21/21 History of Present Illness Details: This is a 65-year-old gentleman that presents here today from cardiovascular. He has a history of multiple sclerosis, paroxysmal atrial fibrillation, hypertension and diabetes. Patient was seen in hospital in April 2021 for atrial fibrillation with RVR. His diltiazem was adjusted. He presented to [facility] for an EKG follow-up that showed atrial fibrillation at 125 bpm. He proceeded with Holter monitor that showed atrial fibrillation 100% of scan and average heart rate of 91 bpm. He had repeat twelve-lead ECG on 06/13/2021 that continued to show atrial fibrillation. It was thus recommended proceed with cardioversion. Overall patient is doing well. He does not have any chest pain or heaviness. He does not have any worsening shortness of breath. He does not have any lightheadedness, dizziness. He does not have any lower extremity edema. Intake Vital Signs: See EMR Intake Visit Reasons: DCCV Sampler Tester Required: No Accompanied by: None Is patient in pain?: No Allergies No Known Allergies Allergy (Verified 11/04/20 15:23) Medications See EMR [facility] Medical History Paroxysmal atrial fibrillation (Chronic) Right bundle branch block (Chronic) Essential (primary) hypertension (Chronic) BPH (benign prostatic hyperplasia) (Chronic) Multiple sclerosis (Chronic) Sepsis (Chronic) Type 2 diabetes mellitus (Chronic) Bilateral enlargement of atria (Inactive) Surgical History H/O arthroscopy of knee (Resolved) H/O hand surgery (Resolved) Family History Mother Cancer Father Heart disease Cancer Social History (Updated 11/04/20 @ 16:18 by Lesia BONDS, PA) Smoking Status: Never smoker alcohol intake: former substance use type: does not use caffeine: Yes Type: coffee eating out: 1-3 times/week what type of physical activity do you participate in: none seatbelt use: always do you feel safe at home: Yes ROS Const Const: Positive for weakness (MS); negative for fatigue, fever(s) or headache(s) Eyes Eyes: Negative for blind spots, loss of peripheral vision or transient loss of vision ENT ENT: Negative for headache(s), dizziness, tinnitus or Nosebleed/epistaxis Cardio Chest Pain: No Palpitations: No Edema: None Muscle aches with walking: None Resp Respiratory: Negative for SOB with activity, SOB at rest, SOB orthopnea\SOB lying down or Cough GI GI: Negative nausea, vomiting, heartburn or vomiting blood/hematemesis : Negative for hematuria Musc Musc: Negative for muscle aches/ myalgia Neuro Neuro: Positive for weakness (MS); negative for dizziness, lightheadedness, near syncope, syncope, orthostatic symptoms or headache(s) Asael Hematologic/Lymphatic: Negative for easy bleeding Endo Endo: Negative for fatigue Cardiology Exam Const Appearance: cooperative, no acute distress and well developed Orientation: alert, awake and oriented x3 Head Head: normocephalic and atraumatic Mouth: moist mucous membranes Eyes General: appearance normal, both eyes and all related structures Conjunctivae: conjunctivae normal Pupils: PERRL EOM: EOM intact bilaterally Neck Neck: normal visual inspection, no lymphadenopathy and no JVD Carotids: Negative bruit Neck Mass: Negative Neck mass Chest Chest inspection: normal inspection of the chest and symmetric chest movement Auscultation: Bilateral: Clear to Auscultation Cardio Palpation: normal PMI Rate: regular rate Rhythm: regular rhythm Heart sounds: S1 normal and S2 normal; negative rub, gallop or murmur GI GI: normal to inspection, soft, no hepatosplenomegaly and bowel sounds present; negative tender Neuro General: alert, awake, oriented x3, CN's II-XI intact bilaterally and moves all extremities Extremities Pulses: Normal: Right Posterior Tibial Pulse, Left Posterior Tibial Pulse, Right Radial Pulse, Left Radial Pulse Lower Extremity Edema: None: Bilateral Psych Psychological: normal affect Assessment & Plan 1. Paroxysmal atrial fibrillation I48.0 Plan He will proceed with cardioversion and routine follow-up. 2. Essential hypertension I10 Plan Blood pressure is well controlled on current medications, we do not recommend any changes at this time. Thank you for allowing us to participate in the patients plan of care, if you have any questions please do not hesitate to call. This note was generated using a voice recognition system and there may be incorrect words, spelling or punctuation that were not noted when reviewing the office note prior to saving.
== END 2021-07-21 13:12 | disposition home or self-care (01) ==
LOC: CLSP 11:05
PROVIDERS: PCP Family Medicine; Referring Provider Internal Medicine Cardiovascular Disease; Visit Provider Internal Medicine Cardiovascular Disease
DX: I48.19 Other persistent atrial fibrillation (principal); I10 Essential (primary) hypertension; E11.9 Type 2 diabetes mellitus without complications; G35 Multiple sclerosis; N40.0 Benign prostatic hyperplasia without lower urinary tract symptoms
CPT/HCPCS: 36415; 80048; 92960; 93005; J7040

== ENCOUNTER → 2021-09-08 22:29 | Outpatient (CLI) | payer OTHER, SELFPAY | PROVIDERS: PCP Family Medicine; Referring Provider Physician Assistant Medical; Visit Provider Physician Assistant Medical | DX: G47.33 Obstructive sleep apnea (adult) (pediatric) (principal); I48.19 Other persistent atrial fibrillation | CPT/HCPCS: 95810 ==

== ENCOUNTER → 2022-05-04 | Outpatient (CLI) | payer OTHER, SELFPAY | END | disposition home or self-care (01) | LOC: SL 10:25 | PROVIDERS: PCP Family Medicine; Visit Provider Nurse Practitioner Acute Care | DX: G47.33 Obstructive sleep apnea (adult) (pediatric) (principal) | CPT/HCPCS: 95806 ==

== ENCOUNTER → 2022-07-13 | Outpatient (CLI) | payer OTHER, SELFPAY ==
[2022-07-13 16:26] LABS: Absolute Neutrophil Count 4.2 X10^3/uL (2.0-7.7); Basophil# 0.03 X10^3/uL; Basophil% 0.5 % (0-1); Eosinophil# 0.15 X10^3/uL; Eosinophils% 2.4 % (0-5); Hematocrit 40.8 % (40-54); Lymphocyte % 20.9 % (19-41); Mean Corp Hgb Conc 34.3 g/dL (32-36); Mean Corpuscular Hgb 33.4 pg (27.0-32.0); Mean Corpuscular Volume 97.4 fL (80-94); Mean Platelet Vol. 11.6 fl (6.2-12.0); Monocyte# 0.53 X10^3/uL; Monocyte% 8.5 % (0-10); NRBC Flagged by Analyzer 0 % (0-5); Neutrophil # 4.16 X10^3/uL (2.7-7.7); Neutrophil % 67.1 % (47-70); Platelet Count 192 K/mm3 (150-450); RBC Distribution Width CV 12.7 % (11.6-14.6); RBC Distribution Width SD 45.3 fl (35.1-43.9); Red Blood Count 4.19 M/mm3 (4.6-6.2); White Blood Count 6.2 K/mm3 (4.4-11.0)
[2022-07-13 16:54] LABS: BNP,B-Type NATRIURETIC PEPTIDE 224.4 pg/mL (0-100)
[2022-07-13 17:05] LABS: Anion Gap 7 (5-15); BUN 26 mg/dL (7-18); BUN/Creat Ratio 25.5 RATIO (10-20); Calcium,Total 9.6 mg/dL (8.5-10.1); Chloride 106 mmol/L (98-107); Creatinine, Serum 1.02 mg/dL (0.70-1.30); EST Glomerular Filtration Rate 78 mL/min (>60); Est Glom Filt Rate - Afr Amer 94 mL/min (>60); Glucose 150 mg/dL (74-106); Potassium 4.3 mmol/L (3.5-5.1); Sodium Level 140 mmol/L (136-145); T4 Free Direct 0.81 ng/dL (0.76-1.46); Thyroid Stim Hormone (TSH) 2.58 uIU/mL (0.358-3.74)
== END | disposition home or self-care (01) ==
LOC: LAB 15:58
PROVIDERS: PCP Family Medicine; Referring Provider Physician Assistant Medical; Visit Provider Physician Assistant Medical
DX: I48.19 Other persistent atrial fibrillation (principal); I10 Essential (primary) hypertension; G47.33 Obstructive sleep apnea (adult) (pediatric)
CPT/HCPCS: 36415; 80048; 83880; 84439; 84443; 85025

== ENCOUNTER → 2022-08-02 | Outpatient (CLI) | payer OTHER, SELFPAY ==
--- NOTE | 2022-08-02 13:12 | STRESSREP_ITS ---
Stress Test Report Pharmacologic myocardial perfusion stress test. 66-year-old man with a history of atrial fibrillation. Stress protocol: Resting EKG demonstrates atrial fibrillation with a right bundle branch block pattern a rate of 80 bpm. 0.4 mg of regadenoson was infused per usual protocol followed by rapid intravenous saline flush injection continuous EKG monitoring was performed. The maximum heart rate attained was 109 bpm which was 69% of max impacted heart rate the maximum workload was 1 metabolic equivalent. At rest there were no ST or T wave changes noted to suggest abnormal flow reserve and at peak infusion nonspecific ST changes were noted we did not meet the criteria for ischemia. No clinical angina was noted. The final blood pressure was 130/94 mmHg. Myocardial perfusion protocol. 14.7 mCi of technetium 99m sestamibi was injected at rest. 0.4 mg of regadenoson was infused per usual protocol. At peak infusion 44.9 mCi of te chnetium 99m sestamibi was injected stress images were obtained stress and rest images were reconstructed and compared in the short axis vertical long horizontal long axis. Gated images were also obtained for Perfusion SPECT analysis: Review of the stress images demonstrate normal uptake of tracer noted in all areas of the myocardium. There was a small area in the apex with reduced perfusion suggestive of a previous apical infarct. The rest images similarly demonstrate normal uptake of tracer noted in all areas of myocardium. No reversibility was noted to suggest ischemia. Conclusion: Myocardial perfusion stress test with no ischemia noted. Small apical infarct is suggested.
== END | disposition home or self-care (01) ==
LOC: CVS 07:09
PROVIDERS: PCP Family Medicine; Referring Provider Physician Assistant Medical; Visit Provider Physician Assistant Medical
DX: R53.83 Other fatigue (principal); I48.19 Other persistent atrial fibrillation
CPT/HCPCS: 78452; 93017; A9500; A4216; J2785

== ENCOUNTER → 2022-10-08 | Outpatient (CLI) | payer OTHER, SELFPAY ==
--- NOTE | 2022-10-08 09:54 | ECHOCS_ITS ---
Reason For Study: AFIB Procedure This was a 2D Doppler, Color Flow transthoracic echocardiogram. The study was technically difficult. Contrast injection was performed. Exam performed in department. Left Ventricle Normal LV size. Moderate concentric left ventricular hypertrophy. Left ventricular systolic function is normal. The estimated ejection fraction is 55 %. No regional wall motion abnormalities noted. Right Ventricle Normal RV size. Normal systolic function. Atria The left atrium is moderately enlarged. The right atrium is moderately enlarged. Mitral Valve There is moderate mitral annular calcification. Tricuspid Valve Normal tricuspid valve. Mild to moderate (1-2+) tricuspid valve insufficiency. Pulmonary artery systolic pressure is 45 mmHg. Aortic Valve Trisinus/trileaflet aortic valve. Moderate focal aortic valve calcification. Pulmonic Valve The pulmonic valve is not well visualized. Great Vessels Normal aortic root. The pulmonary artery is normal size. Normal inferior vena cava. Pericardium/Pleural No pericardial effusion. Medication 22 gauge I.V. with prn adaptor inserted into right arm. Diluted definity 2ml given slow IV push to enhance endocardial definition. MMode/2D Measurements & Calculations LVIDd: 4.9 cm IVSd: 1.5 cm Ao root diam: 3.3 cm LVIDs: 4.1 cm LVPWd: 1.7 cm RVDd: 4.6 cm FS: 16.8 % LAV(MOD-bp): 130.3 ml LVAd ap4: 49.9 cm2 SV(MOD-sp4): 67.2 ml LAV(MOD-bp) Indexed: 48.8 ml/m2 LVLd ap4: 11.0 cm LAV(MOD-sp2): 151.8 ml EDV(MOD-sp4): 188.4 ml LAV(MOD-sp4): 112.8 ml EDV(sp4-el): 192.5 ml LVAs ap4: 38.9 cm2 LVLs ap4: 10.2 cm ESV(MOD-sp4): 121.1 ml ESV(sp4-el): 126.0 ml EF(MOD-sp4): 35.7 % EF(sp4-el): 34.6 % SV(sp4-el): 66.6 ml LA A4 area: 31.1 cm2 LA dimension(2D): 5.2 cm RA A4 area: 34.4 cm2 Doppler Measurements & Calculations Med Peak E' Matteo: 88.2 cm/sec MV V2 max: 107.4 cm/sec Ao V2 max: 150.0 cm/sec MV max P.7 mmHg Ao max P.2 mmHg MV V2 mean: 55.9 cm/sec Ao V2 mean: 107.2 cm/sec MV mean P.6 mmHg Ao mean P.4 mmHg MV V2 VTI: 18.8 cm Ao V2 VTI: 29.1 cm AV (velocity ratio): 0.48 LV V1 max: 89.2 cm/sec TR max matteo: 323.1 cm/sec LV V1 max P.2 mmHg TR max P.8 mmHg LV V1 mean P.6 mmHg LV V1 mean: 56.9 cm/sec LV V1 VTI: 13.9 cm ECHO/Echo Complete W/ Contrast Interpretation Summary Normal LV size. Left ventricular systolic function is normal. The estimated ejection fraction is 55 %. Moderate focal aortic valve calcification. Moderate concentric left ventricular hypertrophy. The left atrium is moderately enlarged. The right atrium is moderately enlarged. Contrast injection was performed. Ordering Physician: Lesia Padilla Referring Physician: Lesia Padilla Performed By: Paulette Prado RCS
== END | disposition home or self-care (01) ==
LOC: CVS 09:53
PROVIDERS: PCP Family Medicine; Referring Provider Physician Assistant Medical; Visit Provider Physician Assistant Medical
DX: I48.91 Unspecified atrial fibrillation (principal); R53.83 Other fatigue
CPT/HCPCS: 93306; Q9957; A4216; C8929

== ENCOUNTER 2024-05-07 08:00 | Emergency (ER) | payer OTHER, SELFPAY ==
[2024-05-07 08:00] VITALS: BP 114/81; PULSE 77; RESP 14; TEMP 36.6; O2SAT 96; BMI 35.9
--- NOTE | 2024-05-07 08:14 | CT_ITS ---
STUDY: CT ABDOMEN AND PELVIS WITHOUT CONTRAST REASON FOR EXAM: Male, 68 years old. Back pain RADIATION DOSAGE (If Supplied By Facility): CTDIvol = ( 21.80 ) mGy, DLP = ( 1116.32 ) mGycm TECHNIQUE: Transaxial images were obtained from the dome of the diaphragm to the symphysis pubis without oral contrast, and without intravenous contrast. Sagittal and coronal images were reconstructed. Individualized dose optimization techniques were used for this CT. COMPARISON: Comparison is made with prior study dated May 05, 2021. FINDINGS: The visualized lung bases are unremarkable. This calcification of the mitral valve annulus. Normal liver. Normal gallbladder and extrahepatic biliary system. There is a benign calcified granuloma of the spleen. Normal pancreas. Normal bilateral adrenal glands. Stable punctate nonobstructive right-sided intrarenal calculus. Mild degree of the left perinephric stranding. This is unchanged. Normal visualized stomach. Normal small intestine. There are scattered colonic diverticula consistent with diverticulosis. The appendix is visualized and appears normal. Normal abdominal aorta. Normal inferior vena cava. There is small retroperitoneal lymphadenopathy with enlarged nodes no greater than 10mm in the short axis diameter. Mild degree of diffuse bladder wall thickening. There are prostatic calcifications. Normal abdominal wall. There are diffuse degenerative changes of the visualized lumbar spine. CT/Abdomen/Pelvis without Cont IMPRESSION: Stable examination. Mild degree of diffuse bladder wall thickening. Electronically Signed: Pool Pradhan MD at 9:17 EDT ,
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
[2024-05-07] MEDS: Morphine 4 MG/ML Syringe IV (08:19)
[2024-05-07] MEDS: Ondansetron 4 MG/2 ML Vial IV (08:19)
[2024-05-07] MEDS: 0.9% Normal Saline (1000mL) 1,000 ML 150 ML IV (08:20)
[2024-05-07 08:39] LABS: Absolute Neutrophil Count 6.4 X10^3/uL (2.0-7.7); Basophil# 0.02 X10^3/uL; Basophil% 0.2 % (0-1); Eosinophil# 0.08 X10^3/uL; Hematocrit 38.5 % (40-54); Lymphocyte % 11.1 % (19-41); Mean Corp Hgb Conc 33.8 g/dL (32-36); Mean Corpuscular Hgb 31.9 pg (27.0-32.0); Mean Corpuscular Volume 94.6 fL (80-94); Mean Platelet Vol. 11.1 fl (6.2-12.0); Monocyte# 0.69 X10^3/uL; Monocyte% 8.5 % (0-10); NRBC Flagged by Analyzer 0 % (0-5); Neutrophil # 6.39 X10^3/uL (2.7-7.7); Neutrophil % 78.8 % (47-70); Platelet Count 210 K/mm3 (150-450); RBC Distribution Width CV 12.3 % (11.6-14.6); RBC Distribution Width SD 42.6 fl (35.1-43.9); Red Blood Count 4.07 M/mm3 (4.6-6.2); White Blood Count 8.1 K/mm3 (4.4-11.0)
[2024-05-07 08:57] LABS: Anion Gap 6 (5-15); BUN 24 mg/dL (7-18); BUN/Creat Ratio 27.1 RATIO (10-20); Calcium,Total 9.3 mg/dL (8.5-10.1); Chloride 109 mmol/L (98-107); Creatinine, Serum 0.88 mg/dL (0.70-1.30); EST Glomerular Filtration Rate 91 mL/min (>60); Est Glom Filt Rate - Afr Amer 111 mL/min (>60); Estimated Creatinine Clearance 116.94 ml/min; Glucose 134 mg/dL (74-106); Potassium 3.9 mmol/L (3.5-5.1); Sodium Level 140 mmol/L (136-145)
[2024-05-07 10:00] VITALS: BP 110/84; PULSE 76; RESP 18; O2SAT 94
[2024-05-07 10:02] LABS: Color, Urine Yellow (Yellow); Glucose, Dipstick Normal (Normal); Ketone-Dipstick Negative (Negative); Leukocyte Esterase-Dipstick 500 /ul (Negative); Nitrite-Dipstick Negative (Negative); Occult Blood-Urine 10 /ul (Negative); Protein-Dipstick 15 mg/dl (Negative); Urine Bilirubin Dipstick Negative (Negative); Urine Clarity Sl. Cloudy (Clear); Urine Urobilinogen 1 mg/dl (Normal)
[2024-05-07 10:07] LABS: Red Blood Cells-Urine 0-5 SEEN /hpf (0-5); White Blood Cells 10-25 SEEN /hpf (0-5)
[2024-05-07 10:08] LABS: Bacteria 1+ /hpf (None Seen); Hyaline Cast 0-5 SEEN /lpf (0-5); Mucous, Urine 1+ /hpf (<or=2+); Squamous Epithelial Cells - UA 0-5 SEEN /hpf (0-5)
[2024-05-07 11:00] VITALS: BP 110/84; PULSE 76; RESP 18; TEMP 37; O2SAT 94
== END 2024-05-07 11:05 | disposition home or self-care (01) ==
PROVIDERS: Emergency Provider Emergency Medicine; PCP Student in an Organized Health Care Education/Training Program; Visit Provider Emergency Medicine
DX: N39.0 Urinary tract infection, site not specified (principal); I48.19 Other persistent atrial fibrillation; E11.9 Type 2 diabetes mellitus without complications; I10 Essential (primary) hypertension; Z79.01 Long term (current) use of anticoagulants; M54.9 Dorsalgia, unspecified
CPT/HCPCS: 74176; 80048; 81001; 85025; 87086; 96361; 96374; 96375; 99283; J7030; A4216; J2405

== ENCOUNTER 2024-06-13 21:36 | Emergency (ER) | payer OTHER, SELFPAY ==
[2024-06-13 21:36] VITALS: BP 153/96; PULSE 77; RESP 18; TEMP 36.2; O2SAT 97; BMI 35.9
[2024-06-13 23:10] VITALS: BP 118/91; PULSE 100; RESP 19; O2SAT 98
--- NOTE | 2024-06-13 23:13 | CT_ITS ---
INDICATION: injury EXAMINATION: CT BRAIN - CT Head or Brain W/O Contrast Injection TECHNIQUE: Multiple axial images were obtained of the head without intravenous contrast. The protocol utilizes one or more of the following dose reduction techniques: automated exposure control, adjustment of mA and/or kV according to patient size,and/or use of iterative reconstruction technique. IV Contrast dosage and agent: None. RADIATION DOSAGE (If Supplied By Facility): CTDIvol = ( 44.99 ) mGy, DLP = ( 880.47 ) mGycm COMPARISON: No relevant prior comparison study available FINDINGS: BRAIN: No acute bleed. No edema. Decreased attenuation in the periventricular white matter bilaterally. Gramajo-white matter differentiation is maintained. Arterial calcifications. VENTRICLES AND SULCI: The ventricles are not dilated. The sulci are prominent. EXTRA-AXIAL: No hemorrhage, fluid collection, or mass. CALVARIUM / SKULL BASE: Unremarkable. FACE/SINUSES: Unremarkable. SOFT TISSUES: Unremarkable. CT/Brain/Head without Contrast IMPRESSION: No acute abnormality. Chronic microvascular ischemic disease. Electronically Signed: Izzy Proctor MD at 0:21 EDT ,
--- NOTE | 2024-06-13 23:13 | CT_ITS ---
INDICATION: injury EXAMINATION: CT CERVICAL SPINE - CT Spine Cervical W/O Contrast Injection TECHNIQUE: Helically acquired images were obtained of the cervical spine. 2D reformatted images were reviewed. The protocol utilizes one or more of the following dose reduction techniques: automated exposure control, adjustment of mA and/or kV according to patient size,and/or use of iterative reconstruction technique. IV Contrast dosage and agent: None. RADIATION DOSAGE (If Supplied By Facility): CTDIvol = ( 24.71 ) mGy, DLP = ( 603.33 ) mGycm COMPARISON: No relevant prior comparison study available FINDINGS: ALIGNMENT: No subluxation. MINERALIZATION: Normal. VERTEBRAL BODIES: No fracture or acute abnormality. DISC SPACES: Disc space narrowing with osteophytes most pronounced C5-C7. POSTERIOR ELEMENTS: Facet arthropathy at multiple levels. SPINAL CANAL: Maintained. PARASPINAL SOFT TISSUES: Unremarkable. OTHER: None. CT/Spine Cervical without Contras IMPRESSION: No evidence of fracture or subluxation. Electronically Signed: Izzy Proctor MD at 0:24 EDT ,
--- NOTE | 2024-06-13 23:13 | CT_ITS ---
INDICATION: injury EXAMINATION: CT FACIAL BONES - CT Maxillofacial W/O Contrast Injection TECHNIQUE: Helically acquired images were obtained of the facial bones. A radiation dose optimization technique was used for this scan. The protocol utilizes one or more of the following dose reduction techniques: automated exposure control, adjustment of mA and/or kV according to patient size,and/or use of iterative reconstruction technique. IV Contrast dosage and agent: None. RADIATION DOSAGE (If Supplied By Facility): CTDIvol = ( 29.38 ) mGy, DLP = ( 672.34 ) mGycm COMPARISON: No relevant prior comparison study available FINDINGS: ORBITS: No fracture demonstrated. Globes appear intact. No retrobulbar hematoma. NASAL BONES: Bilateral nasal bone fractures, nondisplaced. NASOETHMOID COMPLEX: Unremarkable. ZYGOMATIC ARCHES: Unremarkable. MAXILLAE: Unremarkable. PTERYGOID PLATES: Unremarkable. MANDIBLE: No fracture demonstrated. No dislocation at the temporomandibular joints. SINUSES: Clear. SOFT TISSUES: Unremarkable. OTHER: None. CT/Sinus/Facial Bone IMPRESSION: Nondisplaced nasal bone fractures. Electronically Signed: Izzy Proctor MD at 0:45 EDT ,
[2024-06-14 01:00] VITALS: PULSE 71; RESP 15; O2SAT 99
--- NOTE | 2024-06-14 01:02 | EDS_ITS ---
HPI History of Present Illness Chief Complaint: Fall Informant: patient and spouse/S.O. Narrative Narrative: Patient is a 68-year-old male with past medical history of atrial fibrillation on Eliquis as well as hypertension and multiple sclerosis. He states that r oughly 1 hour prior to arrival he was sitting on his deck holding his dog by the leash. He states that the dog noticed an animal and tried to run. He states that he did not go of the leash and was yanked out of the chair and fell off the deck. He states he landed on his head/face. He denies any loss of consciousness. He states since that time he has had mild pain across his face/nose but denies true headache change in vision nausea or vomiting or light sensitivity. However because he is on anticoagulation and hit his head there was concern for underlying trauma and he was advised to come to the hospital for evaluation [facility] Medical History (Updated 06/14/24 @ 01:[address] Noah Jeong, DO) Essential hypertension Persistent atrial fibrillation (06/05/21) Atrial fibrillation with rapid ventricular response (05/04/21) Encounter for examination required by Department of Transportation (DOT) Right bundle branch block Bilateral enlargement of atria BPH (benign prostatic hyperplasia) Type 2 diabetes mellitus Multiple sclerosis Home Medications ?Medication ?Instructions ?Recorded ?Last Taken ?Type tamsulosin 0.4 mg capsule 0.4 mg PO DAILY@1730 urinary 05/04/21 Unknown History retentions Oral appliance #1 ea 10/11/21 Unknown Rx tirzepatide 2.5 mg/0.5 mL 2.5 mg subcut QWEEK 04/12/23 Unknown History subcutaneous pen injector (Mounjaro) apixaban 5 mg tablet (Eliquis) 5 mg PO BID please change to 60 03/26/24 Unknown Rx pills, pt has copay card #60 tabs diltiazem HCl 120 mg 120 mg PO DAILY 90 days #90 caps 03/26/24 Unknown Rx capsule,extended release 24 hr losartan 25 mg tablet 25 mg PO DAILY 90 days #90 tabs 03/26/24 Unknown Rx metoprolol tartrate 100 mg tablet 100 mg PO BID 90 days #180 tabs 03/26/24 Unknown Rx hydrocodone-acetaminophen 5-325mg 1 tab PO Q6H PRN PRN Pain 3 days 05/07/24 Unknown Rx 5mg-325mg #10 TABLETS sulfamethoxazole 800 1 tab PO BID #6 tabs 05/07/24 Unknown Rx mg-trimethoprim 160 mg tablet (Bactrim DS) Allergy/AdvReac Type Severity Reaction Status Date / Time flecainide AdvReac Intermediate bloating, Verified 06/13/24 21:36 abdominal pain, chest pain Family History Mother Cancer Father Heart disease Cancer Surgical History H/O hand surgery H/O arthroscopy of knee Social History household members: spouse housing: house number of children: 2 current occupational status: employed 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 history of recent travel: No Smoking Status: Never smoker alcohol intake: former substance use type: does not use caffeine: No eating out: 1-3 times/week what type of physical activity do you participate in: none sarah/church: Hoahaoism seatbelt use: always do you feel safe at home: Yes ROS ROS ED Constitutional Constitutional ED: Denies chills or fever(s) Eyes Eyes: Denies blurry vision or change in vision ENT ENT ED: Denies sore throat Cardiovascular Cardiovascular: Denies chest pain Respiratory/Chest Respiratory/Chest: Denies cough or dyspnea Gastrointestinal Gastrointestinal: Denies abdominal pain, diarrhea, nausea or vomiting Genitourinary Genitourinary ED: Denies dysuria Musculoskeletal Musculoskeletal: Denies back pain, myalgias or neck pain Integumentary Reports Abrasions Neurologic Neurologic: Denies headache(s) Hematologic/Lymphatic Hematologic/Lymphatic: Reports easy bleeding and easy bruising EXAM Physical Exam Const Vital Signs: 06/13/24 21:36 06/13/24 23:09 06/13/24 23:10 Temperature 97.2 F L Temperature Source Temporal Pulse Rate 77 100 Respiratory Rate 18 19 H Respiratory Effort Normal Non-Labored Respiratory Depth Normal Respiratory Pattern Normal Blood Pressure 153/96 H 118/91 H Blood Pressure Mean 115 100 Pulse Ox 97 98 Oxygen Delivery Method Room Air Room Air Room Air 06/14/24 01:00 06/14/24 01:07 Temperature 96.7 F L Temperature Source Pulse Rate 71 67 Respiratory Rate 15 15 Respiratory Effort Respiratory Depth Respiratory Pattern Blood Pressure 133/86 H Blood Pressure Mean 101 Pulse Ox 99 96 Oxygen Delivery Method Room Air Positive well nourished, well developed and obese General Appearance ED: well developed Nutritional Appearance: obese HEENT HEENT Narrative: Patient has soft tissue swelling with ecchymosis and abrasions along the mid to right side of the forehead and this extends around the right orbit and across the bridge of the nose. This is consistent with his report of fall/head injury No signs of depressed or basilar skull fracture No septal hematoma Eyes PERRL and EOMs intact bilaterally Eyes Narrative: No hyphema noted Neck supple Neck Narrative: No bony deformity or step-off of the cervical spine no midline tenderness to palpation Chest Wall palpation of chest normal Chest Narrative: No bony deformity or crepitance noted Resp normal respiratory effort and clear to auscultation bilaterally Cardio regular rate Rate: other Other Details: Irregularly irregular rhythm with regular rate consistent with history of atrial fibrillation GI normal to inspection, nondistended, normoactive bowel sounds, non-tender, non- distended and no masses Auscultation: normoactive bowel sounds Palpation: soft Back/Spine Back/Spine Narrative: No bony deformity or step-off of the thoracic or lumbar spine Extremity normal to inspection Extremity Narrative: Pelvis is stable there is no shortening or external rotation of either lower extremity Patient can move all extremities without difficulty Neuro oriented x3 and CN's II-XII intact bilaterally Sensorium / Orientation: alert Psych mental status grossly normal Skin Skin Narrative: Abrasions with ecchymosis and soft tissue swelling along the right side of the face as documented above MDM MDM MDM Narrative Medical decision making narrative: Patient arrived to the ER hypertensive but has a past medical history of this and in atrial fibrillation but also this is chronic per history. He reported a mechanical fall as he was pulled off the porch by his dog and therefore there is no need for cardiac or syncope workup. However as he is on anticoagulation and fell striking his head there is concern for skull fracture versus traumatic subdural or subarachnoid hemorrhage. There is concern for nasal bone fracture versus orbital floor/blowout fracture. There is also concern for cervical compression fracture or spondylolisthesis. Multiple CT scans were obtained and only revealed nondisplaced nasal bone fractures. The patient does not have septal hematomas and the fractures are closed therefore there is no need for antibiotics or further evaluation in the ER. As workup shows no sign of underlying traumatic brain injury or cervical spine fracture he can be discharged home and follow-up with ENT on an outpatient basis History & Record Review Discussion w/independent historian: Patient and Significant other Radiography Diagnostic Testing: Clinical Impression(s) from Imaging Studies Brain CT 06/13/24 23:13 IMPRESSION: No acute abnormality. Chronic microvascular ischemic disease. Electronically Signed: Izzy Proctor MD at 0:21 EDT , Cervical Spine CT 06/13/24 23:13 IMPRESSION: No evidence of fracture or subluxation. Electronically Signed: Izzy Proctor MD at 0:24 EDT , Facial/Sinus 06/13/24 23:13 IMPRESSION: Nondisplaced nasal bone fractures. 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, Multiple sclerosis Instructions: ED Facial Fracture, ED Head Injury (Adult) Prescriptions: No Action (DME) Oral appliance See Rx Instructions .ROUTE .MEDSUPPLY Qty: 1 0RF Rx Instructions: As directed Mounjaro 2.5 mg/0.5 mL pen injector 2.5 mg subcut QWEEK tamsulosin 0.4 MG capsule 0.4 mg PO DAILY@1730 hydrocodone-acetaminophen 5-325 mg tablet 1 tab PO Q6H PRN PRN (Reason: Pain) 3 Days Qty: 10 0RF sulfamethoxazole-trimethoprim [Bactrim DS] 800-160 mg tablet 1 tab PO BID Qty: 6 0RF Eliquis 5 mg tablet 5 mg PO BID Qty: 60 11RF diltiazem HCl 120 mg capsule,extended release 24hr 120 mg PO DAILY 90 Days Qty: 90 3RF losartan 25 mg tablet 25 mg PO DAILY 90 Days Qty: 90 3RF metoprolol tartrate 100 mg tablet 100 mg PO BID 90 Days Qty: 180 3RF Primary Care Provider: Anthony Manning Referrals: Anthony Manning DO [Primary Care Provider] - Activity Restrictions/Additional Instructions: Discuss with your family doctor about a potential referral to the ENT for further evaluation of your nasal fracture and otherwise continue all of your home medications as previously directed. Return to the ER should you have any further concerns Print Language: Albanian Disposition Disposition: Home, Self Care Discharge Date/Time: 06/14/24 01:08
[2024-06-14 01:07] VITALS: BP 133/86; PULSE 67; RESP 15; TEMP 35.9; O2SAT 96
== END 2024-06-14 01:08 | disposition home or self-care (01) ==
PROVIDERS: Emergency Provider Emergency Medicine; PCP Student in an Organized Health Care Education/Training Program; Visit Provider Emergency Medicine
DX: S02.2XXA Fracture of nasal bones, initial encounter for closed fracture (principal); G35 Multiple sclerosis; I48.19 Other persistent atrial fibrillation; E11.9 Type 2 diabetes mellitus without complications; I10 Essential (primary) hypertension; Z79.01 Long term (current) use of anticoagulants; E66.9 Obesity, unspecified; S09.90XA Unspecified injury of head, initial encounter; W07.XXXA Fall from chair, initial encounter
CPT/HCPCS: 70450; 70486; 72125; 99282

== ENCOUNTER → 2025-03-25 | Outpatient (CLI) | payer MEDICARE, OTHER, SELFPAY | END | disposition home or self-care (01) | LOC: LABSPEC 15:53 | PROVIDERS: PCP Student in an Organized Health Care Education/Training Program; Referring Provider Nurse Practitioner; Visit Provider Nurse Practitioner | DX: N30.21 Other chronic cystitis with hematuria (principal) | CPT/HCPCS: 87077; 87086; 87088; 87186 ==

== ENCOUNTER → 2025-04-15 | Outpatient (CLI) | payer MEDICARE, OTHER, SELFPAY ==
--- NOTE | 2025-04-15 16:38 | CT_ITS ---
PROCEDURE: CT ABD/PELVIS W/WO CONTRAST 04/15/2025 REASON FOR EXAM: ASYMPTOMATIC MICROSCOPIC HEMATURIA, OTHER CHRONIC CYSTITIS WITH H TECHNIQUE: CT ABD/PELVIS W/WO CONTRAST Coronal and Sagittal reconstruction series were provided. CONTRAST: Isovue 300 VOLUME: 99 mL One or more dose reduction techniques were used (e.g., Automated exposure control, adjustment of the mA and/or kV according to patient size, use of iterative reconstruction technique. RADIATION DOSE SUMMARY: CTDlvol: 110 mGy DLP: 5108 mGycm COMPARISON: No FINDINGS: Clear lung bases. Upper limits of normal heart size. Mild cirrhotic liver morphology. Normal gallbladder. Normal pancreas, spleen, adrenal glands. Bilateral renal scarring. On the right, small simple cyst and 1 mm calcification. On the left, there is a 1 cm renal calcification. There is a mildly delayed nephrogram. There is pelvicaliceal fullness without hydroureter or ureteral stone. Unremarkable bladder. Normal-sized prostate. No retroperitoneal or concerning pelvic adenopathy. No free air. Nondistended bowel. Normal appendix. No acute large bowel findings. Lumbar spine degeneration including a remote destruction of the L3-L4 disc space and adjacent vertebral bodies, possible prior history of disc space infection. No acute abdominal wall findings. CT/CT Abd/Pelvis W/WO Contrast IMPRESSION: Mildly delayed left-sided nephrogram and mild pelvicaliceal dilatation, transit ion at the UPJ. 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 There is no hydroureter or ureteral stone noted. 1 cm lower pole left renal calcification. 1 mm lower pole right renal calcific ation Bilateral renal scarring. Reading Location: [place] [id number]
[2025-04-15 16:52] LABS: CREATININE FINGERSTICK < 1.0 mg/dL (0.70-1.30); EGFR FINGERSTICK > 60.0000 mL/min (>60)
== END | disposition home or self-care (01) ==
LOC: CT 16:15
PROVIDERS: PCP Student in an Organized Health Care Education/Training Program; Referring Provider Urology; Visit Provider Urology
DX: N30.21 Other chronic cystitis with hematuria (principal); N40.1 Benign prostatic hyperplasia with lower urinary tract symptoms; R31.21 Asymptomatic microscopic hematuria
CPT/HCPCS: 74178; Q9967

== ENCOUNTER → 2025-04-22 | Outpatient (CLI) | payer MEDICARE, OTHER, SELFPAY | END | disposition home or self-care (01) | LOC: LABSPEC 15:35 | PROVIDERS: PCP Student in an Organized Health Care Education/Training Program; Referring Provider Urology; Visit Provider Urology | DX: N39.0 Urinary tract infection, site not specified (principal) | CPT/HCPCS: 87077; 87086; 87088; 87186 ==

== ENCOUNTER 2025-05-07 11:55 | Day surgery (SDC) | payer MEDICARE, OTHER, SELFPAY ==
--- NOTE | 2025-05-05 11:40 | PAT.ANESEVAL ---
Pre-Assessment Diagnosis/Proposed Procedure Planned Operative Procedure(s): ESWL LEFT STENT LEFT Anesthesia History Anesthesia History - day habilitation supervisor: Anesthesia History - day habilitation supervisor Hx Hospitalization No 05/05/25 08:20 Any Problems With Anesthesia No 05/05/25 08:20 Cholinesterase deficiency No 05/05/25 08:20 You/Your Family Experience No 05/05/25 08:20 fever (hyperthermia) with Relationship Recent Exposure to Contagious No 11/08/23 14:07 Disease Does patient have nerve No 05/05/25 08:20 stimulator Patient instructed to have device shut off --Does patient have Pacemaker or ICD? When Was Last Pacemaker Check QUESTION #4 FULL TEXT: You/Your Family Experience fever (hyperthermia) with Anesthesia Last Oral Intake Last Oral intake: Last Oral Intake NPO since Meds taken in AM with sips of water? Meds patient instructed to take am of surgery PONV PONV - day habilitation supervisor: PONV - day habilitation supervisor Female No 05/05/25 08:20 HX of Motion Sickness No 05/05/25 08:20 HX of N/V After Surgery No 05/05/25 08:20 Non-Smoker Yes 05/05/25 08:20 Duration of Surgery greater Yes 05/05/25 08:20 than 60 minutes Number of Risk Factors 2 05/05/25 08:20 PONV Score Moderate Risk 05/05/25 08:20 Height & Weight Height & Weight: Anesthesia: Height & Weight Height 6 ft 2 in 03/26/25 07:00 Respiratory Assessment Respiratory Assessment - day habilitation supervisor: Respiratory Tract Infection Hx - day habilitation supervisor Hx Respiratory Tract Infection No 05/05/25 08:20 STOP Sleep Apnea STOP Sleep Apnea - day habilitation supervisor: STOP Sleep Apnea - day habilitation supervisor Hx Hypertension Yes: CONTROLLED WITH MED 05/05/25 08:20 Hx Sleep Apnea No 05/05/25 08:20 CPAP BIPAP Do you snore loudly (louder Yes 05/05/25 08:20 than talking or can be heard Do you often feel tired/ No 05/05/25 08:20 fatigued/ sleepy during daytime? Has anyone observed you stop No 05/05/25 08:20 breathing during sleep? STOP Results Positive 05/05/25 08:20 QUESTION #5 FULL TEXT : Do you snore loudly (louder than talking or can be heard through closed doors)? 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 Specify any problems Hx of Preganancy in last 3 N/A 05/05/25 08:20 Months Nurse Filling Out Transfusion DSCHRIBER 05/05/25 08:20 & Questions: Date: 05/05/25 05/05/25 08:20 Time: 08:22 05/05/25 08:20 Patient unable to answer at this time (ie. confused, unrespo /Reproduction History /Reproductive History - day habilitation supervisor: /Reproductive Hx- day habilitation supervisor Hx Now No 05/05/25 08:20 Gestational Age (in weeks): EDC: Hx Hx Para Hx Section SAB No 05/05/25 08:20 PFSH Medical History (Updated 05/05/25 @ 08:29 by Candi Ashley) Wears glasses Arthritis Bladder disease Restless legs Injury of back Back pain Dietary restriction Non-smoker Shortness of breath on exertion History of pain when walking History of Holter monitoring History of stress test History of echocardiogram Cardiology follow-up encounter Hypertension Persistent atrial fibrillation (06/05/21) Atrial fibrillation with rapid ventricular response (05/04/21) Encounter for examination required by Department of Transportation (DOT) Right bundle branch block Bilateral enlargement of atria BPH (benign prostatic hyperplasia) Type 2 diabetes mellitus Home Medications ?Medication ?Instructions ?Recorded ?Last Taken ?Type tamsulosin 0.4 mg capsule 0.4 mg PO DAILY@1730 urinary 05/04/21 Unknown History retentions Oral appliance #1 ea 10/11/21 Unknown Rx tirzepatide 2.5 mg/0.5 mL 2.5 mg subcut TH 04/12/23 04/22/25 History subcutaneous pen injector (Mounjaro) apixaban 5 mg tablet (Eliquis) 5 mg PO BID #180 tabs 03/26/25 05/03/25 Rx diltiazem HCl 120 mg 120 mg PO DAILY #90 caps 03/26/25 Unknown Rx capsule,extended release 24 hr metoprolol tartrate 100 mg tablet 100 mg PO BID #180 TABLETS 03/26/25 Unknown Rx ascorbic acid (vitamin C) 1,000 mg 1 g PO DAILY 05/05/25 Unknown History tablet (C-1000) cholecalciferol (vitamin D3) 25 25 mcg PO DAILY 05/05/25 Unknown History mcg (1,000 unit) capsule (Vitamin D3) finasteride 5 mg tablet 5 mg PO DAILY 05/05/25 Unknown History nitrofurantoin macrocrystal 100 mg 100 mg PO BID 05/05/25 Unknown History capsule zinc gluconate 50 mg tablet 50 mg PO DAILY 05/05/25 Unknown History Allergy/AdvReac Type Severity Reaction Status Date / Time flecainide AdvReac Intermediate bloating, Verified 05/05/25 08:14 abdominal pain, chest pain Family History Mother Cancer Father Heart disease Cancer Surgical History (Updated 05/05/25 @ 08:29 by Candi Ashley) History of cardiac ablation for atrial fibrillation Hx of colonoscopy H/O hand surgery H/O arthroscopy of knee Social History household members: spouse housing: house number of children: 2 current occupational status: employed 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 Pertinent Findings EKG Perinent findings: ECG Report Interpretation Atrial flutter-fibrillation -Frequent pvcs -ventricular trigeminy -Right bundle branch block. -Old anteroseptal infarct. ABNORMAL Electronically signed on 08/14/2022 at 17:32 Stress test pertinent findings: Pharmacologic myocardial perfusion stress test 08/02/2022: Conclusion: Myocardial perfusion stress test with no ischemia noted. Small apical infarct is suggested. Echo (EF%) pertinent findings: Echocardiogram 10/08/2022: Normal LV size. Left ventricular systolic function is normal. The estimated ejection fraction is 55 %. Moderate focal aortic valve calcification. Moderate concentric left ventricular hypertrophy. The left atrium is moderately enlarged. The right atrium is moderately enlarged. Contrast injection was performed. Echocardiogram 2020: The estimated ejection fraction is 55 %. No evidence for diastolic dysfunction. Trivial mitral valve insufficiency. Mild tricuspid valve insufficiency. Pulmonary artery systolic pressure is 40-45 mmHg. Consult pertinent findings: [facility] cardiology: Persistent atrial fibrillation-rate is controlled he is not symptomatic continue current medications. JORGE ALBERTO AHI 58.2 Recommendation Anesthesia Recommendation Anesthesia recommendation: OPTIMIZED for anesthesia (Can consider EKG on the day of the procedure if there is any concern for patient being irregular. Please make sure that patient takes her diltiazem and metoprolol as scheduled)
[2025-05-07] VITALS (8 sets, daily range): BP systolic 98–136; BP diastolic 63–95; PULSE 65–104; RESP 16–18; TEMP 36.2–36.6; O2SAT 95–100; BMI 40.1
--- NOTE | 2025-05-07 07:04 | PCM.HP.STD ---
HPI - General General Date of Service: 05/07/25 Chief Complaint: Kidney stone HPI Narrative DAVID RAMIREZ, is a 69 M who presents for treatment of kidney stone on the left side with shockwave lithotripsy possible may have to do a laser also may have to do a stent on the left side. [facility] Medical History (Updated 05/05/25 @ 08:29 by Candi Ashley) Wears glasses Arthritis Bladder disease Restless legs Injury of back Back pain Dietary restriction Non-smoker Shortness of breath on exertion History of pain when walking History of Holter monitoring History of stress test History of echocardiogram Cardiology follow-up encounter Hypertension Persistent atrial fibrillation (06/05/21) Atrial fibrillation with rapid ventricular response (05/04/21) Encounter for examination required by Department of Transportation (DOT) Right bundle branch block Bilateral enlargement of atria BPH (benign prostatic hyperplasia) Type 2 diabetes mellitus Home Medications ?Medication ?Instructions ?Recorded ?Last Taken ?Type tamsulosin 0.4 mg capsule 0.4 mg PO DAILY@1730 urinary 05/04/21 Unknown History retentions Oral appliance #1 ea 10/11/21 Unknown Rx tirzepatide 2.5 mg/0.5 mL 2.5 mg subcut TH 04/12/23 04/22/25 History subcutaneous pen injector (Mounheraclioro) apixaban 5 mg tablet (Eliquis) 5 mg PO BID #180 tabs 03/26/25 05/03/25 Rx diltiazem HCl 120 mg 120 mg PO DAILY #90 caps 03/26/25 Unknown Rx capsule,extended release 24 hr metoprolol tartrate 100 mg tablet 100 mg PO BID #180 TABLETS 03/26/25 Unknown Rx ascorbic acid (vitamin C) 1,000 mg 1 g PO DAILY 05/05/25 Unknown History tablet (C-1000) cholecalciferol (vitamin D3) 25 25 mcg PO DAILY 05/05/25 Unknown History mcg (1,000 unit) capsule (Vitamin D3) finasteride 5 mg tablet 5 mg PO DAILY 05/05/25 Unknown History nitrofurantoin macrocrystal 100 mg 100 mg PO BID 05/05/25 Unknown History capsule zinc gluconate 50 mg tablet 50 mg PO DAILY 05/05/25 Unknown History Allergy/AdvReac Type Severity Reaction Status Date / Time flecainide AdvReac Intermediate bloating, Verified 05/05/25 08:14 abdominal pain, chest pain Family History Mother Cancer Father Heart disease Cancer Surgical History (Updated 05/05/25 @ 08:29 by Candi Ashley) History of cardiac ablation for atrial fibrillation Hx of colonoscopy H/O hand surgery H/O arthroscopy of knee Social History household members: spouse housing: house number of children: 2 current occupational status: employed 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
--- NOTE | 2025-05-07 12:01 | RAD_ITS ---
PROCEDURE: ABDOMEN SINGLE VIEW 05/07/2025 REASON FOR EXAM: LEFT KIDNEY STONE TECHNIQUE: ABDOMEN SINGLE VIEW COMPARISON: CT abdomen and pelvic study dated 04/15/2025 FINDINGS: Of moderate to large amount of stool and gas is present throughout a nondistended colon. No free air is seen. Left psoas muscle and left renal are well outlined. Right psoas muscle and right renal outlines are partially obscured by overlying bowel gas and fecal material within the colon. There is a 9 mm calcific density projected over the lower pole of the left kidney. This presumably represents a renal stone. An 8 mm calcific density is projected over the left upper abdominal quadrant and most likely represents either a splenic granuloma or debris within the bowel. Degenerative changes of the lumbar spine are noted. RAD/Abdomen Single View IMPRESSION: A 9 mm calcific density is projected over the lower pole of the left kidney and presumably represents a stone. The patient appears to be mildly constipated. An 8 mm calcific densityis projected over the left upper abdominal quadrant mo st likely representing debris within the colon however another consideration would be a splenic granuloma. Degenerative changes of the lumbar spine. Reading Location: [id number]
[2025-05-07] MEDS: Lactated Ringers 1,000 ML 15 ML IV (12:39)
--- NOTE | 2025-05-07 12:51 | PCM.PRE.AN2 ---
ASA Classification* ASA Classification ASA Classification: 3 Assessment & Plan Anesthesia* Anesthesia Assessment Anesthesia Assessment: Discussed sedation and/or anesthesia options, risks, benefits, and alternatives with patient/parents/legal guardian/POA. Questions invited. The patient/parents/legal guardian/POA seems to understand and agrees to proceed with anesthesia plan. Reviewed the physical assessment, medical history, allergy history and patient home medications list prior to surgery/procedure/anesthetic and documented any changes. Performed airway and anesthesia risk assessments. Anesthesia Type Anesthesia Type: General History Source History Obtained from:: Patient and Chart Anesthesia Focused Assessment* Temperature: 97.4 F Pulse Rate: 65 Blood Pressure: 112/63 Respiratory Rate: 18 Pulse Ox: 96 Oxygen Delivery Method: Room Air Airway Assessment Mouth opens: >3 cm Mallampati Score: I Teeth Condition: Caps/Crowns (Teeth #8 and 9 are capped.) Neck Range of motion (ROM): Full ROM Labs Anesthesia Preop lab: CBC WBC 8.1 K/mm3 (4.4-11.0) 05/07/24 08:05/07/24 RBC 4.07 M/mm3 (4.6-6.2) L 05/07/24 08:28 05/07/24 Hgb 13.0 g/dL (13.0-16.5) 05/07/24 08:28 05/07/24 Hct 38.5 % (40-54) L 05/07/24 08:28 05/07/24 Plt Count 210 K/mm3 (150-450) 05/07/24 08:28 05/07/24 CHEMISTRY Potassium 3.9 mmol/L (3.5-5.1) 05/07/24 08:28 05/07/24 Sodium 140 mmol/L (136-145) 05/07/24 08:28 05/07/24 Magnesium 1.8 mg/dL (1.8-2.4) 08/21/17 07:50 08/21/17 BUN 24 mg/dL (7-18) H 05/07/24 08:28 05/07/24 Creatinine 0.88 mg/dL (0.70-1.30) 05/07/24 08:28 05/07/24 Glucose 134 mg/dL (74-106) H 05/07/24 08:28 05/07/24 POC Glucose 116 mg/dL (70-110) H 12/16/17 08:02 12/16/17 TSH 2.58 uIU/mL (0.358-3.74) 07/13/22 16:00 07/13/22 COAG PT 14.9 SECONDS (11.7-14.9) 08/19/17 05:10 08/19/17 Pre-Assessment Diagnosis/Proposed Procedure Planned Operative Procedure(s): ESWL LEFT STENT LEFT Anesthesia History Anesthesia History - educational technology specialist: Anesthesia History - educational technology specialist Hx Hospitalization No 05/05/25 08:20 Any Problems With Anesthesia No 05/05/25 08:20 Cholinesterase deficiency No 05/05/25 08:20 You/Your Family Experience No 05/05/25 08:20 fever (hyperthermia) with Relationship Recent Exposure to Contagious No 11/08/23 14:07 Disease Does patient have nerve No 05/05/25 08:20 stimulator Patient instructed to have device shut off --Does patient have Pacemaker No 05/07/25 12:32 or ICD? When Was Last Pacemaker Check QUESTION #4 FULL TEXT: You/Your Family Experience fever (hyperthermia) with Anesthesia Last Oral Intake Last Oral intake: Last Oral Intake NPO since 09:00 05/07/25 12:32 Meds taken in AM with sips of Yes 05/07/25 12:32 water? Meds patient instructed to metoprolol, diltiazem, 05/07/25 12:32 take am of surgery finasteride Any additional information?: Yes NPO since: 09:00 (Patient had coffee at 9 AM.) Meds taken in AM with sips of water?: Yes PONV PONV - educational technology specialist: PONV - educational technology specialist Female No 05/05/25 08:20 HX of Motion Sickness No 05/05/25 08:20 HX of N/V After Surgery No 05/05/25 08:20 Non-Smoker Yes 05/05/25 08:20 Duration of Surgery greater Yes 05/05/25 08:20 than 60 minutes Number of Risk Factors 2 05/05/25 08:20 PONV Score Moderate Risk 05/05/25 08:20 Height & Weight Height & Weight: Anesthesia: Height & Weight Height 6 ft 2 in 05/07/25 12:32 Weight: 141.9 kg 05/07/25 12:32 Body Mass Index (BMI) 40.1 05/07/25 12:32 Respiratory Assessment Respiratory Assessment - educational technology specialist: Respiratory Tract Infection Hx - educational technology specialist Hx Respiratory Tract Infection No 05/05/25 08:20 STOP Sleep Apnea STOP Sleep Apnea - educational technology specialist: STOP Sleep Apnea - educational technology specialist Hx Hypertension Yes: CONTROLLED WITH MED 05/05/25 08:20 Hx Sleep Apnea No 05/05/25 08:20 CPAP BIPAP Do you snore loudly (louder Yes 05/05/25 08:20 than talking or can be heard Do you often feel tired/ No 05/05/25 08:20 fatigued/ sleepy during daytime? Has anyone observed you stop No 05/05/25 08:20 breathing during sleep? STOP Results Positive 05/05/25 08:20 QUESTION #5 FULL TEXT : Do you snore loudly (louder than talking or can be heard through closed doors)? Tobacco Use History Tobacco Use History - educational technology specialist: Tobacco Use History - educational technology specialist Tobacco Use Smoking Status Never smoker 05/05/25 08:20 Hx Tobacco Use No 05/05/25 08:20 Years Smoking Packs Smoked per Day Smoking Cessation Date was within the last 15 years Hx Smoking Cessation Date Hx Smoking Cessation Counseling Hematologic Medial History Hematologic Hx - educational technology specialist: Hematologic Medical Hx - insole and heel stiffener Hx of Blood Transfusion No 05/05/25 08:20 Hx of Transfusion in last 3 No 05/05/25 08:20 Months Date of Last Transfusion (if within last 3 months) Ever experience any problems No 05/05/25 08:20 with transfusion(s)? Specify any problems Hx of Preganancy in last 3 N/A 05/05/25 08:20 Months Nurse Filling Out Transfusion DSCHRIBER 05/05/25 08:20 & Questions: Date: 05/05/25 05/05/25 08:20 Time: 08:22 05/05/25 08:20 Patient unable to answer at this time (ie. confused, unrespo /Reproduction History /Reproductive History - educational technology specialist: /Reproductive Hx- educational technology specialist Hx Now No 05/05/25 08:20 Gestational Age (in weeks): EDC: Hx Hx Para Hx Section SAB No 05/05/25 08:20 Active Medications Active Medications: Current Medications Generic Name Dose Route Start Last Admin Trade Name Shania PRN Reason Stop Dose Admin Cefazolin Sodium 3 gm/ Sodium 115 mls @ 200 mls/hr 05/07/25 14:10 Chloride IV 05/07/25 14:44 INTRAOP ONE Lactated Ringer's 1,000 mls @ 15 mls/hr 05/07/25 12:15 05/07/25 12:39 IV 15 mls/hr .Q48H MIMA Administration PFSH Medical History Wears glasses Arthritis Bladder disease Restless legs Injury of back Back pain Dietary restriction Non-smoker Shortness of breath on exertion History of pain when walking History of Holter monitoring History of stress test History of echocardiogram Cardiology follow-up encounter Hypertension Persistent atrial fibrillation (06/05/21) Atrial fibrillation with rapid ventricular response (05/04/21) Encounter for examination required by Department of Transportation (DOT) Right bundle branch block Bilateral enlargement of atria BPH (benign prostatic hyperplasia) Type 2 diabetes mellitus Home Medications ?Medication ?Instructions ?Recorded ?Last Taken ?Type Oral appliance #1 ea 10/11/21 Unknown Rx tirzepatide 2.5 mg/0.5 mL 2.5 mg subcut TH 04/12/23 04/22/25 History subcutaneous pen injector (Paul) apixaban 5 mg tablet (Eliquis) 5 mg PO BID #180 tabs 03/26/25 05/02/25 Rx diltiazem HCl 120 mg 120 mg PO DAILY #90 caps 03/26/25 05/07/25 Rx capsule,extended release 24 hr metoprolol tartrate 100 mg tablet 100 mg PO BID #180 TABLETS 03/26/25 05/07/25 Rx ascorbic acid (vitamin C) 1,000 mg 1 g PO DAILY 05/05/25 05/04/25 History tablet (C-1000) cholecalciferol (vitamin D3) 25 25 mcg PO DAILY 05/05/25 05/04/25 History mcg (1,000 unit) capsule (Vitamin D3) finasteride 5 mg tablet 5 mg PO DAILY 05/05/25 05/07/25 History zinc gluconate 50 mg tablet 50 mg PO DAILY 05/05/25 05/04/25 History Allergy/AdvReac Type Severity Reaction Status Date / Time flecainide AdvReac Intermediate bloating, Verified 05/07/25 12:29 abdominal pain, chest pain Family History Mother Cancer Father Heart disease Cancer Surgical History History of cardiac ablation for atrial fibrillation Hx of colonoscopy H/O hand surgery H/O arthroscopy of knee Social History household members: spouse housing: house number of children: 2 current occupational status: employed 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
--- NOTE | 2025-05-07 13:20 | DCINST_ITS ---
Discharge Instructions DC O2, CPAP, BIPAP needs Home O2 Discharge instructions: No Dressing / Incision Discharge Activity: Return to Normal Activity and No Restrictions Dressing / Incision Call your doctor if you observe: Fever of 101 or Higher and Uncontrolled pain Follow Up Care Please Follow Up With: Jorge Calvo MD When: Call [phone] for an appointment Test Results: Test results from this visit will be discussed in further detail at your follow- up appointment, if applicable. Discharge Plan Admission Primary Reason for Your Visit: left ESWL Attending Provider: Jorge Calvo Primary Care Provider: Anthony Manning Instructions Print Language: Mongolian Discharge Orders/Prescriptions Prescriptions: New ciprofloxacin HCl [Cipro] 500 mg tablet 500 mg PO BID Qty: 6 0RF oxycodone 5 mg tablet 5 mg PO Q6H PRN (Reason: pain) 3 Days Qty: 14 0RF Continued (DME) Oral appliance See Rx Instructions .ROUTE .MEDSUPPLY Qty: 1 0RF Rx Instructions: As directed Mounjaro 2.5 mg/0.5 mL pen injector 2.5 mg subcut TH diltiazem HCl 120 mg capsule,extended release 24hr 120 mg PO DAILY Qty: 90 3RF metoprolol tartrate 100 mg tablet 100 mg PO BID Qty: 180 3RF finasteride 5 mg tablet 5 mg PO DAILY cholecalciferol (vitamin D3) [Vitamin D3] 25 mcg (1,000 unit) capsule 25 mcg PO DAILY ascorbic acid (vitamin C) [C-1000] 1,000 mg tablet 1 g PO DAILY zinc gluconate 50 mg tablet 50 mg PO DAILY Held Eliquis 5 mg tablet 5 mg PO BID Qty: 180 3RF Hold Instructions: Resume on 05/10/25. Referrals / Follow Up: Anthony Manning DO [Primary Care Provider] - Jorge Calvo MD [Med Staff - Active Staff] - Disposition Disposition (needs filled in before D/C Order can be placed): Home, Self Care
--- NOTE | 2025-05-07 14:24 | PCM.POSTANE2 ---
Anesthesia Postop Eval I Sum Anesthesia Postop Eval I Summary Anesthesia Postop Eval I Summary: Anesthesia Postop Eval I: Assessment Summary Airway patent Spontaneous unlabored respirations Mental status nausea Vomiting Anesthesia Postop Eval I: Fluid Summary Crystalloid volume administer (ml) Colloids volume administered ( ml) Blood Product volume administered (ml) Total IV fluid infused Anesthesia Postop Eval I: Summary Notes Anesthesia Complication Anesthesia Complication Comment: Post-operative progress note Anesthesia: Postop Eval II Evaluation Mental status: Awake and Calm Pain Level: 1 nausea: No Vomiting: No Complications Anesthesia Complication: No
--- NOTE | 2025-05-07 16:10 | PCM.OPRPT ---
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 In the preoperative area and x-ray was done to confirm the location of the stone. The x-ray was reviewed and the stone location was reviewed. In the preoperative setting I spoke with the patient regarding the treatment of the stone how the treatment would be conducted and the expectations after surgery. The patient understands there is a risk of bleeding and infection. Also discussed the very rare risk of hematoma or damage to the kidney. We also discussed the risk that the shockwave machine will fail to break the stone adequately and that the patient may need other surgical procedures. I also discussed the possibility that the patient may need a stent after the procedure. After reviewing the procedure with the patient, the patient is signed the consent form all the patient's questions were addressed and was taken back to the operating room for treatment of a kidney stone. Patient was taken back to the operating room, the patient was identified by the nursing staff, I identified the side of the treatment and the patient side of treatment had been marked by my initials. The patient underwent general anesthetic and was placed supine on the lithotripter table. I then used fluoroscopy to identify the stone on the Left side. I then positioned the patient under the lithotripter and I used triangulation technique to identify the location of the stone and then I made sure that the stone was engaged in the F2 focal point of F2 Donier lithoprior machine. Once the patient was positioned appropriately and the stone was identified and placed in the F2 focal point of the lithotripter machine I then proceeded with shockwave lithotripsy. In the beginning the shockwave was delivered at a rate of 90 shocks per minute, anesthesia monitored the EKG for any ectopy. The power was slowly increased to 5 kV and subsequently at the 7 kV. I then proceeded with the treatment with shock wave therapy and around during the treatment to make sure the stone stayed in the F2 focal point during the entire treatment and after 3000 shockwaves were delivered to the stone under fluoroscopic guidance the treatment was completed. The patient was given instructions to call the office to make an a follow-up appointment with an x-ray to evaluate the success of the treatment, patient understands that its possible the stones may need another procedure. At this point the patient's anesthetic was reversed patient was extubated and taken back to the PACU in stable condition. Surgical Findings: stone in left kidney treated Complications Complications: No Admit VTE Documentation VTE Present on Admission: No VTE Mechan Device Prophylaxis: SCD's VTE Pharm Prophylaxis ordered?: No
--- NOTE | 2025-05-07 16:49 | PCM.POST.ANE ---
Anesthesia: Postop Eval I Current Vital Signs Temperature: 97.1 F Pulse Rate: 94 Blood Pressure: 136/95 Respiratory Rate: 16 Pulse Ox: 98 Oxygen Delivery Method: Simple Mask Oxygen Flow Rate (L/min): 6 Assessment Airway patent: Yes Spontaneous unlabored respirations: Yes Mental status: Awake and Calm nausea: No Vomiting: No Anesthesia Complication: No Fluid Hydration Crystalloid volume administer (ml): 750 Total IV fluid infused: 750 Progress Note Anesthesia document: Postop Eval 1 completed: Yes
== END 2025-05-07 17:37 | disposition home or self-care (01) ==
LOC: SDC 11:56 → AC 11:57
PROVIDERS: PCP Student in an Organized Health Care Education/Training Program; Referring Provider Urology; Visit Provider Urology
PROC: (CPT 50590; principal; 2025-05-07 13:50)
DX: N20.0 Calculus of kidney (principal); I48.19 Other persistent atrial fibrillation; E11.9 Type 2 diabetes mellitus without complications; I10 Essential (primary) hypertension; Z79.01 Long term (current) use of anticoagulants; Z79.85 Long-term (current) use of injectable non-insulin antidiabetic drugs; Z79.899 Other long term (current) drug therapy
CPT/HCPCS: 50590; 00873; 74018; 82962; J2405